=== PATIENT | female | born 1930 | race Two or more races ===

== ENCOUNTER 2019-06-28 13:30 | Inpatient (IN) | payer OTHER, MEDICARE ==
--- NOTE | 2019-06-28 15:18 | PDOC ---
History of Present Illness - General Chief Complaint: Urinary Problem Stated Complaint: UTI, BACK PAIN Time Seen by Provider: 06/28/19 14:19 History Source: Patient, Care Provider (Home health aide at bedside.), Primary Care Provider Exam Limitations: Dementia - History of Present Illness Initial Comments: HPI: 89 y/o female presenting to [facility] ER complaining of several days of right lower back pain and urinary urgency. Pt lives at [facility] assisted living with health aide. Interview limited as pt has a h/o dementia and cannot recall why she is in the ED. Aide reports she is having trouble making to the bathroom before voiding, which is unusual for the pt. Further reports the pt's urine has been more cloudy recently. Medical Hx: Medical Hx: (Obtained from PCP) - Dementia - Rectal Prolapse s/o corrective surgery - Cholelithiasis - B12 Deficiency - Osteoporosis - Varicose Veins - Incontinence - passive fecal - GERD - HLD - HTN w/ HfpEF - Collagenous Colitis - Abdominal hernia - Cardiac murmur (unspecified) - Slow transit constipation - Iron deficiency anemia Past Surgical Hx: - Tonsillectomy / Adenoidectomy - Hernia repair- Inguinal (x2) - Hysterectomy - total abd hyst w/ bladder sling - Appendectomy - Stomach resection for severe ulcer disease - Rectal prolapse repair - ORIF Left Femoral Neck Review of Systems: In addition to that documented in the HPI above, the additional ROS was obtained : Constitutional- Denies fevers or chills Head- Denies vision changes ENMT- Denies sore throat CV- Denies chest pain Resp- Denies SOB GI- Denies vomiting or diarrhea - Denies painful urination or hematuria MSK- Denies recent trauma Skin- Denies new rashes Neuro- Denies new numbness or tingling or weakness Endocrine- Denies polyuria Heme- Denies bleeding or bruising Physical Examination: Constitutional- Elderly adult female in no acute distress or obvious discomfort. Found semi-fowlers on hospital bed. Answered all questions appropriately and completely. Head- Normocephalic. No obvious external signs of trauma. Cardiovascular / Chest- Regular rate and regular rhythm. Systolic murmur. No murmur, rubs, clicks, or gallops. Peripheral pulses- radial pulses full. Respiratory- Breathing unlabored. Equal chest rise and fall. Clear to auscultation bilaterally. No stridor, no wheezing, no rhonchi. Gastrointestinal- abdomen is soft, non-tender, non-distended. Large ventral hernia that easily reduces. Neuro- Alert and oriented to person and place but cannot recall year or reason for presentation. Moving all four extremities spontaneously. MSK- Diffuse tenderness to right lower back versus posterior pelvis without overlying ecchymosis. Skin- Warm, dry, and intact. - No R or L CVA tenderness. Psych- Affect- appropriate. Mood- normal. Speech was non-labored, non- pressured. MDM: *Reviewed vital signs, nursing notes, and prior visit documentation (if available). 89 y/o female presenting with right lower back versus posterior pelvic pain and urinary incontinence. Afebrile. Vitals unremarkable for hypotension or tachycardia. Physical exam as described above. UA concerning for acute cystitis. Ordered Ceftriaxone for abx. Plain film of hip and pelvis revealed large stool burden. Ordered enema and Miralax. Will obtain CTAP given limited HPI. 28 Jun 2019 15:08 PM Telephone conversation w/ pts PCP. Faxed copy of last clinic encounter. 28 Jun 2019 17:57 PM Microblog sent to [facility] service for admission. Awaiting call back. CTAP revealed likely SBO. Oncoming ED Attending will page surgery and follow up on pending admission. Prosper Gutierrez M.D., PGY2 Emergency Medicine Resident Past History - Past Medical History Allergies/Adverse Reactions: Allergies Allergy/AdvReac Type Severity Reaction Status Date / Time No Known Allergies Allergy Verified 06/28/19 14:37 Home Medications: Ambulatory Orders Alendronate Sodium [Fosamax] 1 tab PO WEEKLY 06/28/19 Amlodipine Besylate 2.5 mg PO DAILY 06/28/19 Aspirin [Aspirin EC] 81 mg PO DAILY 06/28/19 Atorvastatin Ca [Lipitor] 20 mg PO DAILY 06/28/19 Cholecalciferol (Vitamin D3) [D-2000] 2,000 unit PO DAILY 06/28/19 Cyanocobalamin (Vitamin B-12) [B-12] 2,500 mcg SL DAILY 06/28/19 Famotidine [Pepcid] 20 mg PO DAILY 06/28/19 Iron,Carbonyl [Carbonyl Iron] 65 mg PO Q48H 06/28/19 Topiramate [Topamax] 25 mg PO BID 06/28/19 COPD: No Dementia: Yes GI Disorders: Yes (GERD) HTN: Yes Hypercholesterolemia: Yes Other medical history: UMBILACAL HERNIA, HEADACHES - Surgical History GI Surgery: Yes (RECTAL PROLAPSE) - Psycho Social/Smoking Cessation Hx Smoking History: Never smoked Hx Alcohol Use: No Drug/Substance Use Hx: No *Physical Exam - Vital Signs Last Vital Signs Temp Pulse Resp BP Pulse Ox 98.7 F 68 16 140/73 98 06/28/19 14:12 06/28/19 14:12 06/28/19 14:12 06/28/19 14:12 06/28/19 14:12 ED Treatment Course - LABORATORY CBC & Chemistry Diagram: 06/29/19 07:30 06/30/19 06:00 - ADDITIONAL ORDERS Additional order review: Laboratory Results 06/28/19 14:50 Urine Color Yellow Urine Appearance Turbid Urine pH 7.5 Urine Protein Trace Urine Glucose (UA) Negative Urine Ketones Negative Urine Blood 1+ H Urine Nitrite Positive H Urine Bilirubin Negative Urine Urobilinogen 0.2 Ur Leukocyte Esterase 3+ Urine RBC 10-20 Urine WBC >100 Urine Bacteria Many - RADIOLOGY Radiology Studies Ordered: Category Date Time Status CHEST - PA [RAD] Stat Radiology 06/28/19 14:44 Ordered HIP & PELVIS-RIGHT [RAD] Stat Radiology 06/28/19 14:43 Ordered Discharge - Discharge Information Problems reviewed: Yes Clinical Impression/Diagnosis: Cystitis, Left lower quadrant abdominal pain Lower back pain Qualifiers: Chronicity: acute Back pain laterality: right Sciatica presence: without sciatica Qualified Code(s): M54.5 - Low back pain Constipation Qualifiers: Constipation type: unspecified constipation type Qualified Code(s): K59.00 - Constipation, unspecified Condition: Stable - Admission Yes - Follow up/Referral - Patient Discharge Instructions - Post Discharge Activity
[2019-06-28 15:25] LABS: BASO % 0.4 % (0-2.0); EOS % 0.9 % (0-4.5); HEMATOCRIT 41.1 % (32.4-45.2); HEMOGLOBIN 13.5 GM/dl (10.7-15.3); LYMPH % 22.9 % (8-40); MCH 30.1 pg (25.7-33.7); MEAN CELL VOLUME 91.4 fl (80-96); MEAN PLT VOLUME 7.8 fl (7.5-11.1); NEUT % 70.8 % (42.8-82.8); PLATELET COUNT 325 K/MM3 (134-434); RBC 4.49 M/mm3 (3.60-5.2); RDW 13.6 % (11.6-15.6); WHITE BLOOD COUNT 8.7 K/mm3 (4.0-10.8)
[2019-06-28 15:32] LABS: ALBUMIN 3.5 g/dl (3.4-5.0); BILIRUBIN,TOTAL 1.4 mg/dl (0.2-1); CALCIUM 8.9 mg/dl (8.5-10); CREATININE 0.6 mg/dl (0.55-1.3); PHOSPHOROUS 3.3 mg/dl (2.5-4.9); POTASSIUM 3.7 mmol/L (3.5-5.1); TOT PROT 7.3 g/dl (6.4-8.2)
[2019-06-28] MEDS ORDERED: CEFTRIAXONE 1,000 MG in DEXTROSE 5%-WATER - 50 ML IVPB ONE (16:07)
[2019-06-28] MEDS ORDERED: POLYETHYLENE GLYCOL 3350 119 GM BTL PO ONE (16:08)
[2019-06-28] MEDS ORDERED: SODIUM PHOSPHATE/NA BIPHOS 133 ML ENEMA PR ONE (16:08)
[2019-06-28] MEDS ORDERED: cefTRIAXone SODIUM 1 GM VIAL ONE (16:21)
--- NOTE | 2019-06-28 16:54 | PDOC ---
Attending Attestation - Resident Resident Name: GutierrezProsper - ED Attending Attestation I have performed the following: I have examined & evaluated the patient, The case was reviewed & discussed with the resident, I agree w/resident's findings & plan, Exceptions are as noted - HPI HPI: 06/28/19 16:51 89 yo F here with c/o increased incontinence, urinary frequency and cloudy urine noted by aid. pt has dementia. history provided by her home health aid. pt has been eating ok, no fevers. no n/v no c/o abd pain. normally stools only every third day. c/o low back pain. flank pain. no falls, no other complaints. no cp no sob. daughter Luz Marina [place] [phone] - Physicial Exam PE: 06/28/19 16:52 awake alert lungs clear bilat heart systolic murmur, rrr. abd soft mild llq ttp. cva ttp. hip nt from, ext wwp no edema. no calf tenderness. nuero alert oriented x `1 - Medical Decision Making 06/28/19 16:53 89 yo F with c/o flank pain, urinary sxs. differential diverticulitis constipation. uti pyelo. plan ct a/p xray pelvis eval for hip path, ua cultrues, labs. pt with large UTI. large stool noted on xray pelvis. due to llq pain. will obtain ct a/p will admit for infection given ceftriaxone 06/28/19 19:28 ct a/p with sbo, surgical scar. will consult surgery. microblog for admission awaiting call back. was given ceftriaxone for her uti.l Heart Score/ECG Review #1 General ECG Interpretation: Sinus Rhythm, Normal Rate, Normal Intervals, No acute ischemic changes Compared to previous ECG there are: Other (left axis. rate 87 bpm.)
--- NOTE | 2019-06-28 20:46 | HP ---
Admitting History and Physical - Primary Care Physician PCP: - Admission Chief Complaint: Urinary problem, Back pain History of Present Illness: 89 year old female arrived to [facility] ER complaining of several days of right lower back pain and urinary urgency. Patient lives at [facility] assisted living with health aide. Interview limited due to h/o dementia, patient can not recall why she is in the ED. According to ED notes, Aide reported she is having trouble making to the bathroom on time (urgency, frequency and urine appears cloudy). 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 Cardiovascular: Yes: CHF, HTN, Hyperlipdemia, Murmur Gastrointestinal: Yes: Constipation, GERD, Other (Collagenous Colitis, Abdominal hernia) Hepatobiliary: Yes: Cholelithiasis Heme/Onc: Yes: Anemia, B12 Deficiency - Past Surgical History Past Surgical History: Yes: Appendectomy, Hernia Repair, Joint Replacement Additional Past Surgical History: PSX h/o - Tonsillectomy / Adenoidectomy - Hernia repair- Inguinal (x2) - Hysterectomy - total abd hyst w/ bladder sling - Appendectomy - Stomach resection for severe ulcer disease - Rectal prolapse repair - ORIF Left Femoral Neck - Smoking History Smoking history: Never smoked Have you smoked in the past 12 months: No - Alcohol/Substance Use Hx Alcohol Use: No History of Substance Use: reports: None - Social History Usual Living Arrangement: Yes: Assisted Living ADL: Support Services History of Recent Travel: No Home Medications - Allergies Allergies/Adverse Reactions: Allergies Allergy/AdvReac Type Severity Reaction Status Date / Time No Known Allergies Allergy Verified 06/28/19 14:37 - Home Medications Home Medications: Ambulatory Orders Alendronate Sodium [Fosamax] 1 tab PO WEEKLY 06/28/19 Amlodipine Besylate 2.5 mg PO DAILY 06/28/19 Aspirin [Aspirin EC] 81 mg PO DAILY 06/28/19 Atorvastatin Ca [Lipitor] 20 mg PO DAILY 06/28/19 Cholecalciferol (Vitamin D3) [D-2000] 2,000 unit PO DAILY 06/28/19 Cyanocobalamin (Vitamin B-12) [B-12] 2,500 mcg SL DAILY 06/28/19 Famotidine [Pepcid] 20 mg PO DAILY 06/28/19 Iron,Carbonyl [Carbonyl Iron] 65 mg PO Q48H 06/28/19 Topiramate [Topamax] 25 mg PO BID 06/28/19 Family Medical History Family History: Unable to Obtain (advance dementia) Review of Systems Unable to obtain ROS, reason: dementia Physical Examination Vital Signs: Vital Signs Temperature 98.3 F 06/28/19 19:06 Pulse Rate 91 H 06/28/19 19:06 Respiratory Rate 18 06/28/19 19:06 Blood Pressure 163/114 H 06/28/19 19:06 O2 Sat by Pulse Oximetry (%) 100 06/28/19 19:06 Constitutional: Yes: No Distress, Calm Eyes: Yes: Conjunctiva Clear, EOM Intact HENT: Yes: Atraumatic, Normocephalic Neck: Yes: Supple, Trachea Midline Cardiovascular: Yes: Regular Rate and Rhythm Respiratory: Yes: Regular, CTA Bilaterally Gastrointestinal: Yes: Normal Bowel Sounds, Soft, Tenderness Musculoskeletal: Yes: WNL Edema: No Peripheral Pulses WNL: Yes Integumentary: Yes: WNL Neurological: Yes: Alert, Confusion Psychiatric: Yes: Alert Labs: CBC, BMP 06/28/19 15:00 06/28/19 15:00 Imaging - Results Chest X-ray: Report Reviewed (no acute pathology) X-ray: Report Reviewed (right hip/pelvis: no fx or subluxation) Cat Scan: Report Reviewed (CTAP reveals SBO) Problem List - Problems (1) Cystitis Code(s): N30.90 - CYSTITIS, UNSPECIFIED WITHOUT HEMATURIA (2) SBO (small bowel obstruction) Code(s): K56.609 - UNSP INTESTNL OBST, UNSP TO PARTIAL VERSUS COMPLETE OBST (3) HTN (hypertension) Code(s): I10 - ESSENTIAL (PRIMARY) HYPERTENSION (4) HLD (hyperlipidemia) Code(s): E78.5 - HYPERLIPIDEMIA, UNSPECIFIED (5) CHF (congestive heart failure) Code(s): I50.9 - HEART FAILURE, UNSPECIFIED (6) GERD (gastroesophageal reflux disease) Code(s): K21.9 - GASTRO-ESOPHAGEAL REFLUX DISEASE WITHOUT ESOPHAGITIS (7) Vitamin B deficiency, unspecified Code(s): E53.9 - VITAMIN B DEFICIENCY, UNSPECIFIED (8) Anemia Code(s): D64.9 - ANEMIA, UNSPECIFIED (9) Dementia Code(s): F03.90 - UNSPECIFIED DEMENTIA WITHOUT BEHAVIORAL DISTURBANCE Assessment/Plan 89 year old female arrived to [facility] ER complaining of several days of right lower back pain and urinary urgency. Patient lives at [facility] assisted living with health aide. Interview limited due to h/o dementia, patient can not recall why she is in the ED. According to ED notes, Aide reported she is having trouble making to the bathroom on time (urgency, frequency and urine appears cloudy). #SBO - Abd CT/pelvis: several dilated small bowel loops within left lower abdomen, suggestive of obstruction, moderate size umbilical hernia containing several large, small bowel loops, 3 cm left renal upper lobe cyst - in ED given : fleet enema, and miralax - NPO - continue with miralax BID - follow up GI in AM # UTI UA positive, given ceftriaxone in ED - follow up urine culture - will continue with ceftriaxone 1 g daily, and adjust based on sensitivity - Tylenol po q 6 hours PRN - follow up cbc, Cmp in AM # HTN w/ HfpEF # HLD EKG: Sinus Rhythm, Normal Rate, Normal Intervals, No acute ischemic changes CXR: no acute pathology -Amlodipine Besylate 2.5 mg PO DAILY -Atorvastatin Ca 20 mg PO DAILY -Monitor I&O -fluid restriction -trend lytes # GERD - Famotidine 20 mg PO DAILY #Anemia # B12 deficiency -Cyanocobalamin 2,500 mcg SL DAILY -Iron,Carbonyl 65 mg PO Q48H # Dementia - safety/fall precaution Visit type - Emergency Visit Emergency Visit: Yes ED Registration Date: 06/28/19 Care time: The patient presented to the Emergency Department on the above date and was hospitalized for further evaluation of their emergent condition. - New Patient This patient is new to me today: Yes Date on this admission: 06/29/19 - Critical Care Critical Care patient: No
[2019-06-28] MEDS ORDERED: morphine SULFATE 4 MG/ML VIAL ONE (21:09)
[2019-06-28] MEDS ORDERED: ACETAMINOPHEN 1000 MG/100 ML VIAL (NON FORMULARY) IVPB ONE (22:58)
[2019-06-28] MEDS ORDERED: ACETAMINOPHEN INJECTION 100 ML IVPB ONE (22:58)
[2019-06-29 00:41] VITALS: BMI 25.3
[2019-06-29] MEDS ORDERED: PATIENT'S OWN MEDICATION (NON-FORMULARY) (Alendronate Sodium [Fosamax] 1 TAB) PO SCH (00:45)
[2019-06-29] MEDS: IRON CARBONYL 65 MG PO SCH (03:25)
--- NOTE | 2019-06-29 07:44 | CONSULT ---
Consult Consult Specialty:: General Surgery Reason for Consultation:: sbo patten on ct scan? no obstruvtive symproms - History of Present Illness Chief Complaint: back pain and urinary problem History of Present Illness: 89 yo female PMH HTN, Dementia, GERD, CHF, HLD, chronic constipation s/p abdominal surgery presented to ED complaining of several days of right lower back pain and urinary urgency. Patient lives at [facility] assisted living with health aide. Interview limited due to h/o dementia, patient can not recall why she is in the ED. According to ED notes, Aide reported she is having trouble making to the bathroom on time (urgency, frequency and urine appears cloudy). CT scan of abdoman mentioned dialted loop and an anastomosis so surgery was called to assess despite no complaint of gastrointestinal obstructiev symptoms. She denies nausea and vomiting. She reports bouts of constipation. 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 Cardio/Vascular: Yes: CHF, HTN, Hyperlipdemia, Murmur Gastrointestinal: Yes: Constipation, GERD, Other (Collagenous Colitis, Abdominal hernia) Hepatobiliary: Yes: Cholelithiasis ...LMP Comment: 89 YEAR OLD ...: No - Past Surgical History Past Surgical History: Yes: Appendectomy, Hernia Repair, Joint Replacement - Alcohol/Substance Use Hx Alcohol Use: No History of Substance Use: reports: None - Smoking History Smoking history: Never smoked Have you smoked in the past 12 months: No - Social History ADL: Support Services History of Recent Travel: No Home Medications - Allergies Allergies/Adverse Reactions: Allergies Allergy/AdvReac Type Severity Reaction Status Date / Time No Known Allergies Allergy Verified 06/28/19 14:37 - Home Medications Home Medications: Ambulatory Orders Alendronate Sodium [Fosamax] 1 tab PO WEEKLY 06/28/19 Amlodipine Besylate 2.5 mg PO DAILY 06/28/19 Aspirin [Aspirin EC] 81 mg PO DAILY 06/28/19 Atorvastatin Ca [Lipitor] 20 mg PO DAILY 06/28/19 Cholecalciferol (Vitamin D3) [D-2000] 2,000 unit PO DAILY 06/28/19 Cyanocobalamin (Vitamin B-12) [B-12] 2,500 mcg SL DAILY 06/28/19 Famotidine [Pepcid] 20 mg PO DAILY 06/28/19 Iron,Carbonyl [Carbonyl Iron] 65 mg PO Q48H 06/28/19 Topiramate [Topamax] 25 mg PO BID 06/28/19 Review of Systems - Review of Systems Constitutional: denies: Chills, Fever Eyes: denies: Blind Spots, Other HENT: denies: Difficult Swallowing, Throat Pain, Ringing in Ears Neck: denies: Decreased ROM, Pain on Movement, Tenderness Cardiovascular: denies: Chest Pain, Palpitations Respiratory: denies: Cough, SOB Gastrointestinal: reports: Constipation, Indigestion. denies: Abdominal Pain Genitourinary: denies: Burning, Dysuria Breasts: reports: No Symptoms Reported. denies: Pain Musculoskeletal: denies: Back Pain, Muscle Pain, Muscle Cramps Neurological: denies: Seizure, Syncope Endocrine: denies: Unexplained Weight Gain, Unexplained Weight Loss Hematology/Lymphatic: denies: Easily Bruised, Excessive Bleeding Psychiatric: denies: Anxiety, Depression Physical Exam Vital Signs: Vital Signs Temperature 98.3 F 06/29/19 06:00 Pulse Rate 71 06/29/19 06:00 Respiratory Rate 18 06/29/19 06:00 Blood Pressure 127/58 L 06/29/19 06:00 O2 Sat by Pulse Oximetry (%) 92 L 06/29/19 06:00 Constitutional: Yes: Well Nourished, No Distress, Calm Eyes: Yes: Conjunctiva Clear, EOM Intact HENT: Yes: Atraumatic, Normocephalic Neck: Yes: Supple, Trachea Midline Cardiovascular: Yes: Regular Rate and Rhythm, S1, S2 Respiratory: Yes: Regular, CTA Bilaterally Gastrointestinal: Yes: Normal Bowel Sounds, Soft. No: Distention, Tenderness ...Rectal Exam: No: Erythema, Mass Renal/: No: CVA Tenderness - Left, CVA Tenderness - Right, Hematuria Breast(s): No: Dimpling, Nipple Inversion Musculoskeletal: No: Muscle Pain Extremities: No: Amputation, Cool, Cyanosis Edema: No Peripheral Pulses WNL: Yes Integumentary: Yes: Incision (healed midline with large incisonal hernia). No: Jaundice, Laceration Neurological: Yes: Alert, Confusion. No: Oriented Psychiatric: Yes: Alert. No: Oriented Imaging - Results Cat Scan: Report Reviewed, Image Reviewed Problem List - Problems (1) SBO (small bowel obstruction) Assessment/Plan: 89yo female with SBO pattern on CT scan, no clinical signs of SBO, contipation noted. No indication for surgical intervention clears advance diet as tolerated Medical managemnt of UTI Dulcolax recall as needed Thank you for the opportunity to participate in the care of this patient. Problems reviewed: Yes Code(s): K56.609 - UNSP INTESTNL OBST, UNSP TO PARTIAL VERSUS COMPLETE OBST (2) CHF (congestive heart failure) Problems reviewed: Yes Code(s): I50.9 - HEART FAILURE, UNSPECIFIED (3) Constipation Problems reviewed: Yes Code(s): K59.00 - CONSTIPATION, UNSPECIFIED Qualifiers: Constipation type: unspecified constipation type Qualified Code(s): K59.00 - Constipation, unspecified (4) Dementia Problems reviewed: Yes Code(s): F03.90 - UNSPECIFIED DEMENTIA WITHOUT BEHAVIORAL DISTURBANCE (5) GERD (gastroesophageal reflux disease) Problems reviewed: Yes Code(s): K21.9 - GASTRO-ESOPHAGEAL REFLUX DISEASE WITHOUT ESOPHAGITIS (6) HLD (hyperlipidemia) Problems reviewed: Yes Code(s): E78.5 - HYPERLIPIDEMIA, UNSPECIFIED (7) HTN (hypertension) Problems reviewed: Yes Code(s): I10 - ESSENTIAL (PRIMARY) HYPERTENSION
[2019-06-29 08:30] LABS: HEMATOCRIT 38.9 % (32.4-45.2); HEMOGLOBIN 12.7 GM/dl (10.7-15.3); MCH 29.8 pg (25.7-33.7); MCHC 32.6 g/dl (32.0-36.0); MEAN CELL VOLUME 91.2 fl (80-96); MEAN PLT VOLUME 8.4 fl (7.5-11.1); PLATELET COUNT 297 K/MM3 (134-434); RBC 4.27 M/mm3 (3.60-5.2); RDW 13.8 % (11.6-15.6); WHITE BLOOD COUNT 6.5 K/mm3 (4.0-10.8)
[2019-06-29 08:49] LABS: ALBUMIN 3.2 g/dl (3.4-5.0); BILIRUBIN,TOTAL 1.4 mg/dl (0.2-1); CALCIUM 8.9 mg/dl (8.5-10); CREATININE 0.6 mg/dl (0.55-1.3); POTASSIUM 3.2 mmol/L (3.5-5.1); TOT PROT 6.8 g/dl (6.4-8.2)
[2019-06-29] MEDS ORDERED: BISACODYL 5 MG TABLET.DR (FP) PO PRN (09:20)
[2019-06-29] MEDS ORDERED: PT OWN MED DRAWER 7, Y5N ONE (09:27)
[2019-06-29] MEDS: amLODIPine BESYLATE 2.5 MG TABLET (FP) PO SCH (09:40)
[2019-06-29] MEDS: FAMOTIDINE 20 MG TABLET PO SCH (09:45)
[2019-06-29] MEDS ORDERED: CYANOCOBALAMIN 2500 MCG SL SCH (10:00)
[2019-06-29] MEDS: CEFTRIAXONE 1 GM in DEXTROSE 5%-WATER - 50 ML IVPB SCH (10:00)
[2019-06-29] MEDS ORDERED: [UNRECOGNIZED DRUG - OTHER] SL SCH (10:00)
[2019-06-29] MEDS: TOPIRAMATE 25 MG TABLET (FP) PO SCH ×2 (10:05→21:14)
[2019-06-29] MEDS: CHOLECALCIFEROL (VIT D3) 1,000 UNIT (25 MCG) TABLET PO SCH (10:05)
--- NOTE | 2019-06-29 10:29 | PN ---
Physical Exam: SUBJECTIVE: Patient seen and examined, pt remains confused, denies abdominal pain. N/V. OBJECTIVE: Vital Signs Period Temp Pulse Resp BP Sys/Blevins Pulse Ox Last 24 Hr 98.3 F-98.7 F 68-91 16-18 127-163/58-114 92-100 GENERAL: The patient is awake, alert, confused, not in acute distress. HEAD: Normal with no signs of trauma. EYES: PERRL, extraocular movements intact, sclera anicteric, conjunctiva clear. No ptosis. ENT: Ears normal, nares patent, oropharynx clear without exudates, moist mucous membranes. NECK: Trachea midline, full range of motion, supple. LUNGS: Breath sounds equal, clear to auscultation bilaterally, no wheezes, no crackles, no accessory muscle use. HEART: Regular rate and rhythm, S1, S2 without murmur, rub or gallop. ABDOMEN: Soft, nontender, nondistended, normoactive bowel sounds, no guarding, no rebound, no hepatosplenomegaly, no masses.+ umbilical hernia EXTREMITIES: 2+ pulses, warm, well-perfused, no edema. NEUROLOGICAL: Cranial nerves II through XII grossly intact. Normal speech, gait not observed. PSYCH: Normal mood, normal affect. SKIN: Warm, dry, normal turgor, no rashes or lesions noted Laboratory Results - last 24 hr 06/28/19 06/28/19 06/28/19 14:50 15:00 15:00 WBC 8.7 RBC 4.49 Hgb 13.5 Hct 41.1 MCV 91.4 MCH 30.1 MCHC 33.0 RDW 13.6 Plt Count 325 MPV 7.8 Absolute Neuts (auto) 6.2 Neutrophils % 70.8 Lymphocytes % 22.9 Monocytes % 5.0 Eosinophils % 0.9 Basophils % 0.4 Sodium 138 Potassium 3.7 Chloride 109 H Carbon Dioxide 23 Anion Gap 6 L BUN 15.0 Creatinine 0.6 Est GFR (CKD-EPI)AfAm 93.66 Est GFR (CKD-EPI)NonAf 80.81 Random Glucose 109 H Calcium 8.9 Phosphorus 3.3 Magnesium 2.0 Total Bilirubin 1.4 H AST 31 ALT 38 Alkaline Phosphatase 147 H Total Protein 7.3 Albumin 3.5 Urine Color Yellow Urine Appearance Turbid Urine pH 7.5 Urine Protein Trace Urine Glucose (UA) Negative Urine Ketones Negative Urine Blood 1+ H Urine Nitrite Positive H Urine Bilirubin Negative Urine Urobilinogen 0.2 Ur Leukocyte Esterase 3+ Urine RBC 10-20 Urine WBC >100 Urine Bacteria Many 06/29/19 06/29/19 07:30 07:30 WBC 6.5 RBC 4.27 Hgb 12.7 Hct 38.9 MCV 91.2 MCH 29.8 MCHC 32.6 RDW 13.8 Plt Count 297 MPV 8.4 Absolute Neuts (auto) Neutrophils % Lymphocytes % Monocytes % Eosinophils % Basophils % Sodium 141 Potassium 3.2 L Chloride 106 Carbon Dioxide 23 Anion Gap 12 BUN 13.0 Creatinine 0.6 Est GFR (CKD-EPI)AfAm 93.66 Est GFR (CKD-EPI)NonAf 80.81 Random Glucose 119 H Calcium 8.9 Phosphorus Magnesium Total Bilirubin 1.4 H AST 23 ALT 31 Alkaline Phosphatase 129 H D Total Protein 6.8 Albumin 3.2 L Urine Color Urine Appearance Urine pH Urine Protein Urine Glucose (UA) Urine Ketones Urine Blood Urine Nitrite Urine Bilirubin Urine Urobilinogen Ur Leukocyte Esterase Urine RBC Urine WBC Urine Bacteria Active Medications Generic Name Dose Route Start Last Admin Trade Name Freq PRN Reason Stop Dose Admin Acetaminophen 650 mg 06/29/19 00:42 Tylenol - PO Q6H PRN PAIN LEVEL 1-5 Amlodipine Besylate 2.5 mg 06/29/19 10:00 Norvasc - PO DAILY [facility] Atorvastatin Calcium 20 mg 06/29/19 22:00 Lipitor - PO HS [facility] Bisacodyl 5 mg 06/29/19 09:20 Dulcolax - PO DAILY PRN CONSTIPATION Cholecalciferol 2,000 unit 06/29/19 10:00 Vitamin D3 - PO DAILY [facility] Cyanocobalamin 2,500 mcg 06/30/19 10:00 Vitamin B12 - PO DAILY [facility] Famotidine 20 mg 06/29/19 10:00 Pepcid - PO DAILY [facility] Heparin Sodium (Porcine) 5,000 unit 06/29/19 10:00 Heparin - SQ BID [facility] Ceftriaxone Sodium 1 gm/ 50 mls @ 100 mls/hr 06/29/19 10:00 Dextrose IVPB 07/05/19 23:59 DAILY [facility] Non-Formulary Medication 65 mg 06/29/19 00:45 06/29/19 03:25 Iron,Carbonyl [Carbonyl Iron] PO Not Given Q48H [facility] Topiramate 25 mg 06/29/19 10:00 Topamax - PO BID KM Chest X-ray: No acute pathology Hip X-ray: Report Reviewed (right hip/pelvis: no fx or subluxation) Cat Scan: Suggestive of obstruction, GB stones,umbilical hernia ASSESSMENT/PLAN: 89 y/o female with multiple medical problems, who was sent from the [facility] for the evaluation of several days of right lower back pain and urinary urgency. PMD Dr. gaona #SBO - Abd CT/pelvis: several dilated small bowel loops within left lower abdomen, suggestive of obstruction, moderate size umbilical hernia containing several large, small bowel loops, 3 cm left renal upper lobe cyst -sx following, rec diet as tolerated - will cont on laxatives # UTI -UA positive - will cont on Ceftriaxone - afebrile with no leukocytosis - urine culture pending # Hx of HTN w/ HfpEF - no evidence of fluid overload -EKG: Sinus Rhythm, Normal Rate, Normal Intervals, No acute ischemic changes CXR: no acute pathology -Amlodipine Besylate 2.5 mg PO DAILY # HDL - will cont on Atorvastatin Ca 20 mg PO DAILY # GERD - Famotidine 20 mg PO DAILY #Anemia, B12 deficiency -Cyanocobalamin 2,500 mcg SL DAILY -Iron,Carbonyl 65 mg PO Q48H # Dementia - safety/fall precaution # Hypokalemia - K 3.2 replaced -Mg 2 # Abnormal T. bili and ALK, ? chronic - asymptomatic - AST/ ALT - wnl - CT abdomen/ pelvis: No obvious biliary pathology or acute cholecystitis - will check direct bili # VTE: Heparin SQ # F/E/N: Heart Healthy Diet - Replace electrolytes as needed Visit type - Emergency Visit Emergency Visit: Yes ED Registration Date: 06/28/19 Care time: The patient presented to the Emergency Department on the above date and was hospitalized for further evaluation of their emergent condition. - New Patient This patient is new to me today: Yes Date on this admission: 06/29/19 - Critical Care Critical Care patient: No
[2019-06-29] MEDS ORDERED: POTASSIUM CHLORIDE TABS 20 MEQ TABLET.ER (FP) PO ONE (10:42)
[2019-06-29] MEDS: HEPARIN NA (PORCINE) 5,000 UNITS/ML 1ML VIAL SQ SCH ×2 (12:49→21:15)
[2019-06-29] MEDS: ATORVASTATIN CA 20 MG TABLET (FP) PO SCH (21:14)
[2019-06-30] MEDS: ACETAMINOPHEN 325 MG TABLET (FP) PO PRN (07:13)
[2019-06-30] MEDS: TOPIRAMATE 25 MG TABLET (FP) PO SCH ×2 (09:18→21:56)
[2019-06-30] MEDS: amLODIPine BESYLATE 2.5 MG TABLET (FP) PO SCH (09:18)
[2019-06-30] MEDS: FAMOTIDINE 20 MG TABLET PO SCH (09:18)
[2019-06-30] MEDS: HEPARIN NA (PORCINE) 5,000 UNITS/ML 1ML VIAL SQ SCH ×2 (09:19→21:57)
[2019-06-30] MEDS: CYANOCOBALAMIN 1,000 MCG TABLET (FP) PO SCH (09:19)
[2019-06-30] MEDS: CEFTRIAXONE 1 GM in DEXTROSE 5%-WATER - 50 ML IVPB SCH (09:19)
[2019-06-30] MEDS: CHOLECALCIFEROL (VIT D3) 1,000 UNIT (25 MCG) TABLET PO SCH (09:19)
[2019-06-30 09:24] LABS: BILIRUBIN,TOTAL 1.2 mg/dl (0.2-1); CALCIUM 8.8 mg/dl (8.5-10); CREATININE 0.6 mg/dl (0.55-1.3); POTASSIUM 3.1 mmol/L (3.5-5.1); TOT PROT 6.5 g/dl (6.4-8.2)
[2019-06-30 09:43] LABS: MAGNESIUM 2.1 mg/dL (1.8-2.4)
--- NOTE | 2019-06-30 11:01 | PN ---
Physical Exam: SUBJECTIVE: Patient seen and examined, pt confused at baseline, does not recall why she came to ER NAD, pain noted OBJECTIVE: Vital Signs Period Temp Pulse Resp BP Sys/Blevins Pulse Ox Last 24 Hr 98.2 F-98.6 F 69-77 16-19 130-154/62-69 93-100 GENERAL: The patient is awake, alert, and fully oriented, in no acute distress. HEAD: Normal with no signs of trauma. EYES: PERRL, extraocular movements intact, sclera anicteric, conjunctiva clear. No ptosis. ENT: Ears normal, nares patent, oropharynx clear without exudates, moist mucous membranes. NECK: Trachea midline, full range of motion, supple. LUNGS: Breath sounds equal, clear to auscultation bilaterally, no wheezes, no crackles, no accessory muscle use. HEART: Regular rate and rhythm, S1, S2 without murmur, rub or gallop. ABDOMEN: Soft, nontender, nondistended, normoactive bowel sounds, no guarding, no rebound, no hepatosplenomegaly, no masses. EXTREMITIES: 2+ pulses, warm, well-perfused, no edema. NEUROLOGICAL: Cranial nerves II through XII grossly intact. Normal speech, gait not observed. PSYCH: Normal mood, normal affect. SKIN: Warm, dry, normal turgor, no rashes or lesions noted Laboratory Results - last 24 hr 06/29/19 06/30/19 07:30 06:00 Sodium 139 Potassium 3.1 L Chloride 104 Carbon Dioxide 23 Anion Gap 12 BUN 13.0 Creatinine 0.6 Est GFR (CKD-EPI)AfAm 93.66 Est GFR (CKD-EPI)NonAf 80.81 Random Glucose 112 H Calcium 8.8 Magnesium 2.1 Total Bilirubin 1.2 H Direct Bilirubin 0.2 AST 21 ALT 26 Alkaline Phosphatase 122 H Total Protein 6.5 Albumin 3.0 L Active Medications Generic Name Dose Route Start Last Admin Trade Name Freq PRN Reason Stop Dose Admin Acetaminophen 650 mg 06/29/19 00:42 06/30/19 07:13 Tylenol - PO 650 mg Q6H PRN Administration PAIN LEVEL 1-5 Amlodipine Besylate 2.5 mg 06/29/19 10:00 06/30/19 09:18 Norvasc - PO 2.5 mg DAILY KM Administration Atorvastatin Calcium 20 mg 06/29/19 22:00 06/29/19 21:14 Lipitor - PO 20 mg HS KM Administration Bisacodyl 5 mg 06/29/19 09:20 Dulcolax - PO DAILY PRN CONSTIPATION Cholecalciferol 2,000 unit 06/29/19 10:00 06/30/19 09:19 Vitamin D3 - PO 2,000 unit DAILY KM Administration Cyanocobalamin 2,500 mcg 06/30/19 10:00 06/30/19 09:19 Vitamin B12 - PO 2,500 mcg DAILY KM Administration Famotidine 20 mg 06/29/19 10:00 06/30/19 09:18 Pepcid - PO 20 mg DAILY KM Administration Heparin Sodium (Porcine) 5,000 unit 06/29/19 10:00 06/30/19 09:19 Heparin - SQ 5,000 unit BID KM Administration Ceftriaxone Sodium 1 gm/ 50 mls @ 100 mls/hr 06/29/19 10:00 06/30/19 09:19 Dextrose IVPB 07/05/19 23:59 100 mls/hr DAILY KM Administration Non-Formulary Medication 65 mg 06/29/19 00:45 06/29/19 03:25 Iron,Carbonyl [Carbonyl Iron] PO Not Given Q48H KM Topiramate 25 mg 06/29/19 10:00 06/30/19 09:18 Topamax - PO 25 mg BID KM Administration ASSESSMENT/PLAN: 89 y/o female with multiple medical problems, who was sent from the [facility] for the evaluation of several days of right lower back pain and urinary urgency. A/P: #SBO - Abd CT/pelvis: several dilated small bowel loops within left lower abdomen, suggestive of obstruction, moderate size umbilical hernia containing several large, small bowel loops, 3 cm left renal upper lobe cyst -sx following, rec diet as tolerated -no surgical intervention, no SBO - will cont on laxatives #Hypokalemia -40 meq KCL x 2 doses ordered # UTI -UA positive - c/w Ceftriaxone - afebrile with no leukocytosis - urine culture in process # Hx of HTN w/ HfpEF - no evidence of fluid overload -EKG: Sinus Rhythm, Normal Rate, Normal Intervals, No acute ischemic changes CXR: no acute pathology -Amlodipine Besylate 2.5 mg PO DAILY # HDL - c/wAtorvastatin Ca 20 mg PO DAILY # GERD - Famotidine 20 mg PO DAILY #Anemia, B12 deficiency -Cyanocobalamin 2,500 mcg SL DAILY -Iron,Carbonyl 65 mg PO Q48H # Dementia - safety/fall precaution # Abnormal T. bili and ALK, ? chronic - asymptomatic - AST/ ALT - wnl - CT abdomen/ pelvis: No obvious biliary pathology or acute cholecystitis - T.Bili 1.2 improving # VTE: Heparin SQ # F/E/N: Heart Healthy Diet - Replace electrolytes as needed Visit type - Emergency Visit Emergency Visit: Yes ED Registration Date: 06/28/19 Care time: The patient presented to the Emergency Department on the above date and was hospitalized for further evaluation of their emergent condition. - New Patient This patient is new to me today: Yes Date on this admission: 06/30/19 - Critical Care Critical Care patient: No
[2019-06-30] MEDS: ATORVASTATIN CA 20 MG TABLET (FP) PO SCH (21:56)
[2019-06-30] MEDS: POTASSIUM CHLORIDE TABS 20 MEQ TABLET.ER (FP) PO SCH (21:57)
[2019-07-01] MEDS ORDERED: CEFTRIAXONE 1 G/50 ML PREMIX 50 ML IVPB SCH (07:57)
[2019-07-01 08:05] LABS: BASO % 0.6 % (0-2.0); EOS % 3.2 % (0-4.5); HEMATOCRIT 42.5 % (32.4-45.2); HEMOGLOBIN 14.1 GM/dl (10.7-15.3); LYMPH % 37.5 % (8-40); MCH 30.1 pg (25.7-33.7); MCHC 33.2 g/dl (32.0-36.0); MONO % 7.4 % (3.8-10.2); NEUT % 51.3 % (42.8-82.8); PLATELET COUNT 308 K/MM3 (134-434); RBC 4.68 M/mm3 (3.60-5.2); RDW 13.6 % (11.6-15.6)
[2019-07-01 08:24] LABS: ALBUMIN 3.1 g/dl (3.4-5.0); BILIRUBIN,TOTAL 1.3 mg/dl (0.2-1); CALCIUM 9.2 mg/dl (8.5-10); CREATININE 0.7 mg/dl (0.55-1.3); MAGNESIUM 2.2 mg/dL (1.8-2.4); TOT PROT 6.7 g/dl (6.4-8.2)
[2019-07-01] MEDS: CHOLECALCIFEROL (VIT D3) 1,000 UNIT (25 MCG) TABLET PO SCH (10:26)
[2019-07-01] MEDS: CYANOCOBALAMIN 1,000 MCG TABLET (FP) PO SCH (10:26)
[2019-07-01] MEDS: amLODIPine BESYLATE 2.5 MG TABLET (FP) PO SCH (10:27)
[2019-07-01] MEDS: FAMOTIDINE 20 MG TABLET PO SCH (10:27)
[2019-07-01] MEDS: TOPIRAMATE 25 MG TABLET (FP) PO SCH ×2 (10:27→21:29)
[2019-07-01] MEDS: HEPARIN NA (PORCINE) 5,000 UNITS/ML 1ML VIAL SQ SCH ×2 (10:28→21:29)
[2019-07-01] MEDS: POTASSIUM CHLORIDE TABS 20 MEQ TABLET.ER (FP) PO SCH (10:28)
--- NOTE | 2019-07-01 11:03 | EKG ---
Test Reason : Blood Pressure : / mmHG Vent. Rate : 087 BPM Atrial Rate : 087 BPM P-R Int : 144 ms QRS Dur : 086 ms QT Int : 392 ms P-R-T Axes : 024 -05 012 degrees QTc Int : 471 ms NORMAL SINUS RHYTHM NONSPECIFIC ST ABNORMALITY ABNORMAL ECG NO PREVIOUS ECGS AVAILABLE Confirmed by LAZARO GREGG, JEAN ([id number]) on 07/01/2019 11:02:39 AM Referred By: DR REEVES Confirmed By:JEAN WILLIS MD
[2019-07-01] MEDS ORDERED: ERTAPENEM SODIUM 1 GM/50 ML PRE-DOCKED IVPB SCH (14:00)
[2019-07-01] MEDS ORDERED: ERTAPENEM SODIUM 1 GM VIAL ONE (14:13)
[2019-07-01] MEDS ORDERED: SODIUM CHLORIDE 50 ML IVPB ONE (14:14)
[2019-07-01] MEDS ORDERED: ERTAPENEM SODIUM 1 GM in SODIUM CHLORIDE 50 ML IVPB SCH (14:15)
[2019-07-01] MEDS: ACETAMINOPHEN 325 MG TABLET (FP) PO PRN (14:28)
[2019-07-01] MEDS: MEROPENEM 1 GM in DEXTROSE 5%-WATER 100 ML IVPB SCH ×3 (14:29→22:55)
[2019-07-01] MEDS ORDERED: DEXTROSE 5%-WATER 100 ML IVPB ONE ×2 (14:34→21:22)
[2019-07-01] MEDS ORDERED: MEROPENEM 1 GM VIAL (RESTRICTED TO ID) IVPB ONE ×2 (14:34→21:22)
[2019-07-01] MEDS ORDERED: BISACODYL 5 MG TABLET.DR (FP) PO STA (14:38)
--- NOTE | 2019-07-01 14:54 | PN ---
Physical Exam: SUBJECTIVE: Patient seen and examined oob to chair. present. Aide Symone present. OBJECTIVE: Vital Signs Period Temp Pulse Resp BP Sys/Blevins Pulse Ox Last 24 Hr 97.6 F-99.2 F 69-81 16-20 124-144/60-71 92-98 GENERAL: The patient is awake. Oriented only to first name, cannot recall her last name. LUNGS: Breath sounds equal, clear to auscultation bilaterally, no wheezes, no crackles, no accessory muscle use. HEART: Regular rate and rhythm, S1, S2 ABDOMEN: Soft, nontender, nondistended; umbilial hernia, reducible, not tender EXTREMITIES: 2+ pulses, warm, well-perfused, no edema. NEUROLOGICAL: Cranial nerves II through XII grossly intact. Normal speech Laboratory Results - last 24 hr 07/01/19 07/01/19 07:20 07:20 WBC 6.0 RBC 4.68 Hgb 14.1 Hct 42.5 MCV 91.0 MCH 30.1 MCHC 33.2 RDW 13.6 Plt Count 308 MPV 8.0 Absolute Neuts (auto) 3.1 Neutrophils % 51.3 Lymphocytes % 37.5 Monocytes % 7.4 Eosinophils % 3.2 Basophils % 0.6 Sodium 141 Potassium 4.0 Chloride 108 H Carbon Dioxide 22 Anion Gap 11 BUN 16.0 Creatinine 0.7 Est GFR (CKD-EPI)AfAm 89.03 Est GFR (CKD-EPI)NonAf 76.82 Random Glucose 119 H Calcium 9.2 Magnesium 2.2 Total Bilirubin 1.3 H AST 21 ALT 25 Alkaline Phosphatase 118 H Total Protein 6.7 Albumin 3.1 L Active Medications Generic Name Dose Route Start Last Admin Trade Name Frekatelyn PRN Reason Stop Dose Admin Acetaminophen 650 mg 06/29/19 00:42 06/30/19 07:13 Tylenol - PO 650 mg Q6H PRN Administration PAIN LEVEL 1-5 Amlodipine Besylate 2.5 mg 06/29/19 10:00 07/01/19 10:27 Norvasc - PO 2.5 mg DAILY KM Administration Atorvastatin Calcium 20 mg 06/29/19 22:00 06/30/19 21:56 Lipitor - PO 20 mg HS KM Administration Bisacodyl 5 mg 06/29/19 09:20 Dulcolax - PO DAILY PRN CONSTIPATION Cholecalciferol 2,000 unit 06/29/19 10:00 07/01/19 10:26 Vitamin D3 - PO 2,000 unit DAILY KM Administration Cyanocobalamin 2,500 mcg 06/30/19 10:00 07/01/19 10:26 Vitamin B12 - PO 2,500 mcg DAILY KM Administration Ertapenem 1 gm 07/01/19 14:00 Invanz (Pre-Docked) IVPB DAILY KM Famotidine 20 mg 06/29/19 10:00 07/01/19 10:27 Pepcid - PO 20 mg DAILY KM Administration Heparin Sodium (Porcine) 5,000 unit 06/29/19 10:00 07/01/19 10:28 Heparin - SQ 5,000 unit BID KM Administration Topiramate 25 mg 06/29/19 10:00 07/01/19 10:27 Topamax - PO 25 mg BID KM Administration ASSESSMENT/PLAN: 88 year-old female with a PMH significant for HTN, HLD, diastolic HF, GERD, constipation, fecal incontinence, collagenous colitis, iron-deficiency anemia, and dementia. Admitted for UTI and possible SBO. h/o multiple abdominal surgeries. E.coli ESBL UTI --afebrile, no leukocytosis --has been on ceftriaxone, culture back today (+) E.coli ESBL, start meropenem (day #1) Left lower abdominal bowel obstruction Constipation --06/28 CTAP: left lower abdomen focal bowel obstruction, surgical anastamosis in same region; moderate retained stool --start miralax, senna, suppository --seen and evaluated by surgery, medically manage Umbilical hernia --containing several nondilated large and small bowel loops --reducible, not tender Hypertension --BP stable --continue amlodipine Hyperlipidemia --continue Lipitor GERD --continue protonix Dementia --continue topamax FEN Fluids: PO intake adequate Electrolytes: replete as indicated Nutrition: fat/sodium controlled diet DVT prophylaxis: subq heparin Visit type - Emergency Visit Emergency Visit: Yes ED Registration Date: 06/28/19 Care time: The patient presented to the Emergency Department on the above date and was hospitalized for further evaluation of their emergent condition. - New Patient This patient is new to me today: Yes Date on this admission: 07/01/19 - Critical Care Critical Care patient: No - Discharge Referral Referred to [facility] No
[2019-07-01] MEDS: ATORVASTATIN CA 20 MG TABLET (FP) PO SCH (21:28)
[2019-07-01] MEDS: POLYETHYLENE GLYCOL 3350 119 GM BTL PO SCH (21:29)
[2019-07-01] MEDS ORDERED: SENNOSIDES/DOCUSATE COMBO (SENNA PLUS) TABLET (UD) PO SCH (22:00)
[2019-07-02] MEDS ORDERED: DEXTROSE 5%-WATER 100 ML IVPB ONE ×3 (05:35→21:42)
[2019-07-02] MEDS ORDERED: MEROPENEM 1 GM VIAL (RESTRICTED TO ID) IVPB ONE ×3 (05:35→21:42)
[2019-07-02] MEDS: MEROPENEM 1 GM in DEXTROSE 5%-WATER 100 ML IVPB SCH ×3 (06:16→21:54)
[2019-07-02] MEDS: POTASSIUM CHLORIDE TABS 20 MEQ TABLET.ER (FP) PO SCH (07:12)
[2019-07-02] MEDS: IRON CARBONYL 65 MG PO SCH (07:12)
[2019-07-02] MEDS: POLYETHYLENE GLYCOL 3350 119 GM BTL PO SCH ×2 (09:26→21:53)
[2019-07-02] MEDS: FAMOTIDINE 20 MG TABLET PO SCH (09:27)
[2019-07-02] MEDS: HEPARIN NA (PORCINE) 5,000 UNITS/ML 1ML VIAL SQ SCH ×2 (09:27→21:53)
[2019-07-02] MEDS: amLODIPine BESYLATE 2.5 MG TABLET (FP) PO SCH (09:27)
[2019-07-02] MEDS: CHOLECALCIFEROL (VIT D3) 1,000 UNIT (25 MCG) TABLET PO SCH (09:27)
[2019-07-02] MEDS: CYANOCOBALAMIN 1,000 MCG TABLET (FP) PO SCH (09:27)
[2019-07-02] MEDS: TOPIRAMATE 25 MG TABLET (FP) PO SCH ×2 (09:27→21:53)
--- NOTE | 2019-07-02 09:52 | PN ---
Physical Exam: SUBJECTIVE: Patient seen and examined OBJECTIVE: Vital Signs Period Temp Pulse Resp BP Sys/Blevins Pulse Ox Last 24 Hr 97.8 F-98.8 F 66-79 17-18 127-155/61-66 92-98 GENERAL: The patient is awake. Oriented x 1. Confused LUNGS: Breath sounds equal, clear to auscultation bilaterally, no wheezes, no crackles, no accessory muscle use. HEART: Regular rate and rhythm, S1, S2 ABDOMEN: Soft, nontender, nondistended; umbilial hernia, reducible, not tender EXTREMITIES: 2+ pulses, warm, well-perfused, no edema. NEUROLOGICAL: Cranial nerves II through XII grossly intact. Normal speech Active Medications Generic Name Dose Route Start Last Admin Trade Name Freq PRN Reason Stop Dose Admin Acetaminophen 650 mg 06/29/19 00:42 07/01/19 14:28 Tylenol - PO 650 mg Q6H PRN Administration PAIN LEVEL 1-5 Amlodipine Besylate 2.5 mg 06/29/19 10:00 07/02/19 09:27 Norvasc - PO 2.5 mg DAILY KM Administration Atorvastatin Calcium 20 mg 06/29/19 22:00 07/01/19 21:28 Lipitor - PO 20 mg HS KM Administration Cholecalciferol 2,000 unit 06/29/19 10:00 07/02/19 09:27 Vitamin D3 - PO 2,000 unit DAILY KM Administration Cyanocobalamin 2,500 mcg 06/30/19 10:00 07/02/19 09:27 Vitamin B12 - PO 2,500 mcg DAILY KM Administration Famotidine 20 mg 06/29/19 10:00 07/02/19 09:27 Pepcid - PO 20 mg DAILY KM Administration Heparin Sodium (Porcine) 5,000 unit 06/29/19 10:00 07/02/19 09:27 Heparin - SQ 5,000 unit BID KM Administration Meropenem 1 gm/ Dextrose 100 mls @ 200 mls/hr 07/01/19 14:15 07/01/19 14:29 IVPB 200 mls/hr Q8H-IV KM Administration Polyethylene Glycol 17 gm 07/01/19 22:00 07/02/19 09:26 Miralax (For Daily Use) - PO 17 gm BID KM Administration Senna/Docusate Sodium 2 tablet 07/01/19 22:00 07/01/19 21:29 Pericolace - PO 07/02/19 14:39 2 tablet HS KM Administration Topiramate 25 mg 06/29/19 10:00 07/02/19 09:27 Topamax - PO 25 mg BID KM Administration ASSESSMENT/PLAN: 88 year-old female with a PMH significant for HTN, HLD, diastolic HF, GERD, constipation, fecal incontinence, collagenous colitis, iron-deficiency anemia, and dementia. Admitted for UTI and possible SBO. h/o multiple abdominal surgeries. E.coli ESBL UTI --afebrile, no leukocytosis --continue meropenem (day #2) Left lower abdominal bowel obstruction Constipation --06/28 CTAP: left lower abdomen focal bowel obstruction, surgical anastamosis in same region; moderate retained stool --07/02 Xray: no distended loops of small bowel or colon; fecal debris seen througout the colon --enema, miralax, senna --seen and evaluated by surgery, medically manage Umbilical hernia --containing several nondilated large and small bowel loops --reducible, not tender Hypertension --BP stable --continue amlodipine Hyperlipidemia --continue Lipitor GERD --continue protonix Dementia --continue topamax FEN Fluids: PO intake adequate Electrolytes: replete as indicated Nutrition: fat/sodium controlled diet DVT prophylaxis: subq heparin Physical therapy Dispo: continues to require inpatient care. Full code. Visit type - Emergency Visit Emergency Visit: Yes ED Registration Date: 06/28/19 Care time: The patient presented to the Emergency Department on the above date and was hospitalized for further evaluation of their emergent condition. - New Patient This patient is new to me today: No - Critical Care Critical Care patient: No
[2019-07-02] MEDS: ACETAMINOPHEN 325 MG TABLET (FP) PO PRN (12:16)
[2019-07-02] MEDS ORDERED: SODIUM PHOSPHATE/NA BIPHOS 133 ML ENEMA PR ONE (12:46)
[2019-07-02] MEDS ORDERED: MEROPENEM 1 GM in DEXTROSE 5%-WATER 100 ML IVPB SCH (14:00)
--- NOTE | 2019-07-02 15:18 | CON.ID ---
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 Cardio/Vascular: Yes: CHF, HTN, Hyperlipdemia, Murmur Gastrointestinal: Yes: Constipation, GERD, Other (Collagenous Colitis, Abdominal hernia) Hepatobiliary: Yes: Cholelithiasis ...LMP Comment: 89 YEAR OLD ...: No - Past Surgical History Past Surgical History: Yes: Appendectomy, Hernia Repair, Joint Replacement - Alcohol/Substance Use Hx Alcohol Use: No History of Substance Use: reports: None - Smoking History Smoking history: Never smoked Have you smoked in the past 12 months: No - Social History ADL: Support Services History of Recent Travel: No Home Medications - Allergies Allergies/Adverse Reactions: Allergies Allergy/AdvReac Type Severity Reaction Status Date / Time No Known Allergies Allergy Verified 06/28/19 14:37 - Home Medications Home Medications: Ambulatory Orders Alendronate Sodium [Fosamax] 1 tab PO WEEKLY 06/28/19 Amlodipine Besylate 2.5 mg PO DAILY 06/28/19 Aspirin [Aspirin EC] 81 mg PO DAILY 06/28/19 Atorvastatin Ca [Lipitor] 20 mg PO DAILY 06/28/19 Cholecalciferol (Vitamin D3) [D-2000] 2,000 unit PO DAILY 06/28/19 Cyanocobalamin (Vitamin B-12) [B-12] 2,500 mcg SL DAILY 06/28/19 Famotidine [Pepcid] 20 mg PO DAILY 06/28/19 Iron,Carbonyl [Carbonyl Iron] 65 mg PO Q48H 06/28/19 Topiramate [Topamax] 25 mg PO BID 06/28/19 Physical Exam Vital Signs: Vital Signs Temperature 97.5 F L 07/02/19 14:00 Pulse Rate 80 07/02/19 14:00 Respiratory Rate 20 07/02/19 14:00 Blood Pressure 133/65 07/02/19 14:00 O2 Sat by Pulse Oximetry (%) 96 07/02/19 09:26 Labs: CBC, BMP 07/01/19 07:20 07/01/19 07:20
--- NOTE | 2019-07-02 17:16 | DS ---
Physical Exam: SUBJECTIVE: Patient seen and examined OBJECTIVE: Vital Signs Period Temp Pulse Resp BP Sys/Blevins Pulse Ox Last 24 Hr 97.5 F-98.7 F 66-80 17-20 127-155/61-66 95-98 PHYSICAL EXAM GENERAL: The patient is awake. Oriented x 1. Confused. LUNGS: Breath sounds equal, clear to auscultation bilaterally, no wheezes, no crackles, no accessory muscle use. HEART: Regular rate and rhythm, S1, S2 ABDOMEN: Soft, nontender, nondistended; umbilial hernia, reducible, not tender EXTREMITIES: 2+ pulses, warm, well-perfused, no edema. NEUROLOGICAL: Cranial nerves II through XII grossly intact. Normal speech LABS CBCD WBC 6.0 K/mm3 (4.0-10.8) 07/01/19 07:20 RBC 4.68 M/mm3 (3.60-5.2) 07/01/19 07:20 Hgb 14.1 GM/dl (10.7-15.3) 07/01/19 07:20 Hct 42.5 % (32.4-45.2) 07/01/19 07:20 MCV 91.0 fl (80-96) 07/01/19 07:20 MCHC 33.2 g/dl (32.0-36.0) 07/01/19 07:20 RDW 13.6 % (11.6-15.6) 07/01/19 07:20 Plt Count 308 K/MM3 (134-434) 07/01/19 07:20 MPV 8.0 fl (7.5-11.1) 07/01/19 07:20 CMP Sodium 141 mmol/L (136-145) 07/01/19 07:20 Potassium 4.0 mmol/L (3.5-5.1) 07/01/19 07:20 Chloride 108 mmol/L (98-107) H 07/01/19 07:20 Carbon Dioxide 22 mmol/L (21-32) 07/01/19 07:20 Anion Gap 11 MMOL/L (8-16) 07/01/19 07:20 BUN 16.0 mg/dl (7-18) 07/01/19 07:20 Creatinine 0.7 mg/dl (0.55-1.3) 07/01/19 07:20 Calcium 9.2 mg/dl (8.5-10) 07/01/19 07:20 Total Bilirubin 1.3 mg/dl (0.2-1) H 07/01/19 07:20 AST 21 U/L (15-37) 07/01/19 07:20 ALT 25 U/L (13-61) 07/01/19 07:20 Alkaline Phosphatase 118 U/L (45-117) H 07/01/19 07:20 Total Protein 6.7 g/dl (6.4-8.2) 07/01/19 07:20 Albumin 3.1 g/dl (3.4-5.0) L 07/01/19 07:20 HOSPITAL COURSE: Date of Admission:06/28/19 Date of Discharge: 07/02/19 88 year-old female with a PMH significant for HTN, HLD, diastolic HF, GERD, constipation, fecal incontinence, collagenous colitis, iron-deficiency anemia, and dementia. Admitted for UTI and possible SBO. h/o multiple abdominal surgeries. E.coli ESBL UTI --started on meropenem, received 2 doses; will need an additional 12 doses of ertapenem as outpatient --PICC line placed Left lower abdominal bowel obstruction Constipation --initial imaging 06/28 CTAP showed left lower abdomen focal bowel obstruction with a moderate retained stool; was seen and evaluated by surgery, no surgical intervention was indicated --repeat xray on 07/02 showed no distended loops of small bowel or colon --bowel regimen consisted of enema, miralax, senna, should be continued on discharge Umbilical hernia --containing several nondilated large and small bowel loops --reducible, not tender --no surgical intervention Hypertension --BP stable --continued amlodipine Hyperlipidemia --continued Lipitor GERD --continued protonix Dementia --continued topamax Minutes to complete discharge: 35 Discharge Summary Problems reviewed: Yes Reason For Visit: UTI, BACK PAIN Current Active Problems Anemia (Acute) CHF (congestive heart failure) (Acute) Constipation (Acute) Cystitis (Acute) Dementia (Acute) GERD (gastroesophageal reflux disease) (Acute) HLD (hyperlipidemia) (Acute) HTN (hypertension) (Acute) Left lower quadrant abdominal pain (Acute) Lower back pain (Acute) SBO (small bowel obstruction) (Acute) Vitamin B deficiency, unspecified (Acute) Condition: Improved - Instructions Diet, Activity, Other Instructions: The patient is being sent to your facility for IV antibiotic therapy. She is to receive ertapenem 1g IVPB daily x 12 doses. Referrals: Hugo Grace MD [Primary Care Provider] - Disposition: RETIREMENT FACILITY - Home Medications Comprehensive Discharge Medication List: Ambulatory Orders Alendronate Sodium [Fosamax] 1 tab PO WEEKLY 06/28/19 Amlodipine Besylate 2.5 mg PO DAILY 06/28/19 Aspirin [Aspirin EC] 81 mg PO DAILY 06/28/19 Atorvastatin Ca [Lipitor] 20 mg PO DAILY 06/28/19 Cholecalciferol (Vitamin D3) [D-2000] 2,000 unit PO DAILY 06/28/19 Cyanocobalamin (Vitamin B-12) [B-12] 2,500 mcg SL DAILY 06/28/19 Famotidine [Pepcid] 20 mg PO DAILY 06/28/19 Iron,Carbonyl [Carbonyl Iron] 65 mg PO Q48H 06/28/19 Topiramate [Topamax] 25 mg PO BID 06/28/19 This patient is new to me today: No Emergency Visit: Yes ED Registration Date: 06/28/19 Care time: The patient presented to the Emergency Department on the above date and was hospitalized for further evaluation of their emergent condition. Critical Care patient: No - Discharge Referral Referred to [facility] No
[2019-07-02] MEDS: ATORVASTATIN CA 20 MG TABLET (FP) PO SCH (21:53)
[2019-07-03] MEDS ORDERED: DEXTROSE 5%-WATER 100 ML IVPB ONE ×2 (05:47→14:33)
[2019-07-03] MEDS ORDERED: MEROPENEM 1 GM VIAL (RESTRICTED TO ID) IVPB ONE ×2 (05:47→14:34)
[2019-07-03] MEDS: MEROPENEM 1 GM in DEXTROSE 5%-WATER 100 ML IVPB SCH ×2 (06:30→14:35)
[2019-07-03] MEDS: FAMOTIDINE 20 MG TABLET PO SCH (09:45)
[2019-07-03] MEDS: HEPARIN NA (PORCINE) 5,000 UNITS/ML 1ML VIAL SQ SCH (09:45)
[2019-07-03] MEDS: CYANOCOBALAMIN 1,000 MCG TABLET (FP) PO SCH (09:46)
[2019-07-03] MEDS: TOPIRAMATE 25 MG TABLET (FP) PO SCH (09:46)
[2019-07-03] MEDS: CHOLECALCIFEROL (VIT D3) 1,000 UNIT (25 MCG) TABLET PO SCH (09:46)
[2019-07-03] MEDS: amLODIPine BESYLATE 2.5 MG TABLET (FP) PO SCH (09:46)
[2019-07-03 14:12] VITALS: BP 129/85; PULSE 83; TEMP 97.4
[2019-07-03] MEDS: POLYETHYLENE GLYCOL 3350 119 GM BTL PO SCH (14:33)
--- NOTE | 2019-07-03 14:59 | PN ---
Progress Note, Physician History of Present Illness: stable no new issues picc line placed - Current Medication List Current Medications: Active Medications Acetaminophen (Tylenol -) 650 mg PO Q6H PRN PRN Reason: PAIN LEVEL 1-5 Last Admin: 07/02/19 12:16 Dose: 650 mg Amlodipine Besylate (Norvasc -) 2.5 mg PO DAILY [facility] Last Admin: 07/03/19 09:46 Dose: 2.5 mg Atorvastatin Calcium (Lipitor -) 20 mg PO HS [facility] Last Admin: 07/02/19 21:53 Dose: 20 mg Cholecalciferol (Vitamin D3 -) 2,000 unit PO DAILY [facility] Last Admin: 07/03/19 09:46 Dose: 2,000 unit Cyanocobalamin (Vitamin B12 -) 2,500 mcg PO DAILY [facility] Last Admin: 07/03/19 09:46 Dose: 2,500 mcg Famotidine (Pepcid -) 20 mg PO DAILY [facility] Last Admin: 07/03/19 09:45 Dose: 20 mg Heparin Sodium (Porcine) (Heparin -) 5,000 unit SQ BID [facility] Last Admin: 07/03/19 09:45 Dose: 5,000 unit Meropenem 1 gm/ Dextrose 100 mls @ 200 mls/hr IVPB Q8H [facility] Last Admin: 07/03/19 14:35 Dose: 200 mls/hr Polyethylene Glycol (Miralax (For Daily Use) -) 17 gm PO BID [facility] Last Admin: 07/03/19 14:33 Dose: 17 gm Topiramate (Topamax -) 25 mg PO BID [facility] Last Admin: 07/03/19 09:46 Dose: 25 mg - Objective Vital Signs: Vital Signs Temperature 97.4 F L 07/03/19 14:00 Pulse Rate 83 07/03/19 14:00 Respiratory Rate 17 07/03/19 14:00 Blood Pressure 129/85 07/03/19 14:00 O2 Sat by Pulse Oximetry (%) 98 07/03/19 14:00 Constitutional: Yes: No Distress, Calm Cardiovascular: Yes: S1, S2 Respiratory: Yes: Regular, CTA Bilaterally Gastrointestinal: Yes: Normal Bowel Sounds, Soft Musculoskeletal: Yes: WNL Extremities: Yes: WNL Neurological: Yes: Alert, Oriented, Confusion Psychiatric: Yes: Alert Labs: CBC, BMP 07/01/19 07:07/01/19 07:20 Assessment/Plan 88 year-old female with a PMH significant for HTN, HLD, diastolic HF, GERD, constipation, fecal incontinence, collagenous colitis, iron-deficiency anemia, and dementia. Admitted for UTI and possible SBO. h/o multiple abdominal surgeries. E.coli ESBL UTI Left lower abdominal bowel obstruction Constipation Umbilical hernia Hypertension Hyperlipidemia GERD Dementia plan continue abx finish the abx course as planned
== END 2019-07-03 16:00 | DRG 690 ==
LOC: FER 13:30 → FM/S 22:56 → EDBD 22:56 → FM/S 06-29 00:48
PROVIDERS: ADMIT Internal Medicine; ATTEND Nurse Practitioner Acute Care
DX: N39.0 Urinary tract infection, site not specified (principal); I50.32 Chronic diastolic (congestive) heart failure; F03.90 Unspecified dementia, unspecified severity, without behavioral disturbance, psychotic disturbance, mood disturbance, and anxiety; M81.0 Age-related osteoporosis without current pathological fracture; K21.9 Gastro-esophageal reflux disease without esophagitis; E78.5 Hyperlipidemia, unspecified; D50.9 Iron deficiency anemia, unspecified; I11.0 Hypertensive heart disease with heart failure; E53.8 Deficiency of other specified B group vitamins; K59.00 Constipation, unspecified; N28.1 Cyst of kidney, acquired; E87.6 Hypokalemia; B96.20 Unspecified Escherichia coli [E. coli] as the cause of diseases classified elsewhere; K42.9 Umbilical hernia without obstruction or gangrene
CPT/HCPCS: 36415; 36569; 71045-TC-FY; 73523-TC-FY; 74018-TC-FY; 74177-TC; 77001-TC-FY; 80053; 81003; 81015; 82248; 83735; 84100; 85025; 85027; 87086; 87186; 93005; 97116-GP; 97162-GP; 99283-25; C1751; J0131; J1644

== ENCOUNTER 2019-07-30 16:47 | Inpatient (IN) | payer MEDICARE, OTHER ==
--- NOTE | 2019-07-30 17:09 | PDOC ---
History of Present Illness - General Chief Complaint: Injury Stated Complaint: FALL, LOST BALANCE Time Seen by Provider: 07/30/19 16:51 History Source: Family Exam Limitations: Clinical Condition, Dementia - History of Present Illness Initial Comments: 07/30/19 17:09 89 year-old female with a PMH significant for HTN, HLD, diastolic HF, GERD, constipation, fecal incontinence, collagenous colitis, umbilical hernia, iron- deficiency anemia, and dementia presenting with mechanical fall witnessed by and c/o lower back pain. she was walking without her walker when she lost her balance and fell back, hitting her head and back. per health aide, +urinary sx, dark malodorour urine, since coming back from [facility] last week. +baseline with chronic urinary incontinence, uses diapers. recently admitted 1 month ago in June for ESBL UTI, finished antibiotic course - meropenem at the time, and then dc'd to [facility] rehab. history limited 2/2 dementia, provided with support from EMS and home health aid. ROS: limited 2/2 dementia. 07/30/19 17:10 07/30/19 17:12 07/30/19 17:27 07/30/19 18:02 07/30/19 18:57 Past History - Past Medical History Allergies/Adverse Reactions: Allergies Allergy/AdvReac Type Severity Reaction Status Date / Time No Known Allergies Allergy Verified 07/30/19 16:50 Home Medications: Ambulatory Orders Alendronate Sodium [Fosamax] 1 tab PO WEEKLY 06/28/19 Amlodipine Besylate 2.5 mg PO DAILY 06/28/19 Aspirin [Aspirin EC] 81 mg PO DAILY 06/28/19 Atorvastatin Ca [Lipitor] 20 mg PO DAILY 06/28/19 Cholecalciferol (Vitamin D3) [D3-2000] 2,000 unit PO DAILY 06/28/19 Cyanocobalamin (Vitamin B-12) [B-12] 2,500 mcg SL DAILY 06/28/19 Famotidine [Pepcid] 20 mg PO DAILY 06/28/19 Iron,Carbonyl [Carbonyl Iron] 65 mg PO Q48H 06/28/19 Topiramate [Topamax] 25 mg PO BID 06/28/19 COPD: No Dementia: Yes GI Disorders: Yes (GERD) HTN: Yes Hypercholesterolemia: Yes Liver Disease: (CHOLELITHIASIS) - Surgical History Abdominal Surgery: Yes (INGUINAL HERNIA X2) Appendectomy: Yes GI Surgery: Yes (RECTAL PROLAPSE) - Psycho Social/Smoking Cessation Hx Smoking History: Never smoked Have you smoked in the past 12 months: No Information on smoking cessation initiated: No Hx Alcohol Use: No Drug/Substance Use Hx: No Review of Systems - Review of Systems Able to Perform ROS?: No (dementia) *Physical Exam - Vital Signs Last Vital Signs Temp Pulse Resp BP Pulse Ox 98 F 85 20 142/95 98 07/30/19 16:49 07/30/19 16:49 07/30/19 16:49 07/30/19 16:49 07/30/19 16:49 - Physical Exam 07/30/19 17:28 Physical exam: General: GCS 14 - NAD, well appearing, pleasantly demented HEENT: NCAT, PERRL, EOMI. Airway intact. No battles sign or raccoon eyes. No e/ o ocular. Dentition intact. No e/o septal hematoma, nasal bridge stable. Neck: neck supple, no midline C spine tenderness or deformity, ROM intact. No anterior mass or crepitus, trachea midline. Resp: Lungs clear bilaterally Chest: no clavicle or chest wall tenderness or crepitus CVS: RRR, 2+ pulses throughout. Abdomen: Abdomen soft, nontender, nondistended. soft umbilical hernia, reducible; no skin changes. Back: Back with midline spinal tenderness along mid thoracic/lumbar spine, + mild paravertebral tenderness, ROM limited 2/2 pain, no stepoffs. MSK: Pelvis stable, Extremities symmetric, no focal areas of tenderness or deformities, proximal and distally; no pain on axial loading. FROM in all extrem. Neuro: Alert, oriented to person and place only, demented. CN II-XII grossly symmetric and intact. no focal neuro deficits. Sensation and strength intact throughout. Gait normal/stable. Skin: intact, normal color and well perfused. ED Treatment Course - LABORATORY CBC & Chemistry Diagram: 07/31/19 07:30 07/31/19 07:30 Medical Decision Making - Medical Decision Making 07/30/19 17:09 Vital Signs Temp Pulse Resp BP Pulse Ox 98 F 85 20 142/95 98 07/30/19 16:49 07/30/19 16:49 07/30/19 16:49 07/30/19 16:49 07/30/19 16:49 Trauma ddx: ICH, SDH/ EDH, C spine injury/strain, extremity sprain/fracture, pelvis fracture. MSK contusion, msk spasms. Rib fractures. Clinically doubt Intra abdominal and thoracic injuries/bleed, lumbar strain, compression fracture , muscle spasm, UTI Trauma Neg: No evidence of skull fracture, intracranial bleed, dental trauma, cervical, thoracic, or vertebral fracture or subluxation, no suspicion of thoracic, abdominal, pelvic or extremity injury by exam. will check UA, now with new sx x 1 week 07/30/19 18:02 - UA with nitrites, wbcs luigi with acute UTI with her acuity of sx prior urine culture with ESBL UTI, will treat with meropenem again CTs pending, obtained, L1 compression fx preliminarily CT head neg for bleed/skull fx or acute injuries s/o Dr Flores with remainder of workup and admission prelim s/o to [facility] for admission ultimately. pending labs, IVF and the first dose abx. 07/31/19 14:27 Discharge - Discharge Information Problems reviewed: Yes Clinical Impression/Diagnosis: Lumbar compression fracture Qualifiers: Encounter type: initial encounter Lumbar vertebra fracture level: L1 Qualified Code(s): S32.010A - Wedge compression fracture of first lumbar vertebra, initial encounter for closed fracture UTI (urinary tract infection) Qualifiers: Urinary tract infection type: acute cystitis Hematuria presence: without hematuria Qualified Code(s): N30.00 - Acute cystitis without hematuria Condition: Guarded - Admission Yes - Follow up/Referral - Patient Discharge Instructions - Post Discharge Activity
[2019-07-30] MEDS ORDERED: ACETAMINOPHEN 325 MG TABLET (FP) PO ONE (18:06)
[2019-07-30] MEDS ORDERED: LIDOCAINE 5% TOPICAL PATCH TP ONE (18:06)
[2019-07-30 18:38] LABS: EPITHELIAL CELLS FEW /hpf
[2019-07-30] MEDS ORDERED: MEROPENEM 1 GM in DEXTROSE 5%-WATER 100 ML IVPB ONE (18:57)
[2019-07-30] MEDS ORDERED: ACETAMINOPHEN 500 MG TABLET (FP) ONE (19:16)
[2019-07-30] MEDS ORDERED: LIDOCAINE 5% TOPICAL PATCH ONE (19:17)
[2019-07-30 19:53] LABS: BASO % 0.5 % (0-2.0); EOS % 7.4 % (0-4.5); HEMATOCRIT 43.7 % (32.4-45.2); HEMOGLOBIN 14.4 GM/dl (10.7-15.3); LYMPH % 22.8 % (8-40); MCH 30.1 pg (25.7-33.7); MCHC 32.9 g/dl (32.0-36.0); MEAN CELL VOLUME 91.5 fl (80-96); MEAN PLT VOLUME 8.3 fl (7.5-11.1); MONO % 6.2 % (3.8-10.2); NEUT % 63.1 % (42.8-82.8); PLATELET COUNT 397 K/MM3 (134-434); RBC 4.78 M/mm3 (3.60-5.2); RDW 14.8 % (11.6-15.6); WHITE BLOOD COUNT 12.7 K/mm3 (4.0-10.8)
[2019-07-30 20:00] LABS: ALBUMIN 2.9 g/dl (3.4-5.0); BILIRUBIN,TOTAL 1.4 mg/dl (0.2-1); CALCIUM 8.5 mg/dl (8.5-10); CREATININE 0.6 mg/dl (0.55-1.3); POTASSIUM 3.9 mmol/L (3.5-5.1); TOT PROT 6.6 g/dl (6.4-8.2)
--- NOTE | 2019-07-30 21:22 | PDOC ---
*Physical Exam - Vital Signs Last Vital Signs Temp Pulse Resp BP Pulse Ox 98 F 85 20 142/95 98 07/30/19 16:49 07/30/19 16:49 07/30/19 16:49 07/30/19 16:49 07/30/19 16:49 ED Treatment Course - LABORATORY CBC & Chemistry Diagram: 07/30/19 19:20 07/30/19 19:20 - ADDITIONAL ORDERS Additional order review: Laboratory Results 07/30/19 07/30/19 19:20 18:11 Sodium 135 L Potassium 3.9 Chloride 107 Carbon Dioxide 23 Anion Gap 5 L BUN 13.0 Creatinine 0.6 Est GFR (CKD-EPI)AfAm 93.66 Est GFR (CKD-EPI)NonAf 80.81 Random Glucose 125 H Calcium 8.5 Total Bilirubin 1.4 H AST 24 ALT 21 Alkaline Phosphatase 109 Total Protein 6.6 Albumin 2.9 L Urine Color Yellow Urine Appearance Slightly Urine pH 5.5 Urine Protein 1+ H Urine Glucose (UA) Negative Urine Ketones Trace Urine Blood 1+ H Urine Nitrite Positive H Urine Bilirubin 1+ H Urine Urobilinogen 0.2 Ur Leukocyte Esterase 1+ Urine RBC 5-10 Urine WBC >100 Ur Transition Epith Cell Few Urine Bacteria Many 07/30/19 19:20 RBC 4.78 MCV 91.5 MCHC 32.9 RDW 14.8 MPV 8.3 Neutrophils % 63.1 Lymphocytes % 22.8 Monocytes % 6.2 Eosinophils % 7.4 H Basophils % 0.5 - Medications Given in the ED: ED Medications Discontinued Medications Generic Name Dose Route Start Last Admin Trade Name Freq PRN Reason Stop Dose Admin Acetaminophen 1,000 mg 07/30/19 18:06 07/30/19 19:21 Tylenol - PO 07/30/19 18:07 1,000 mg ONCE ONE Administration Meropenem 1 gm/ Dextrose 100 mls @ 200 mls/hr 07/30/19 18:57 07/30/19 19:22 IVPB 07/30/19 19:26 200 mls/hr ONCE ONE Administration Lidocaine 1 patch 07/30/19 18:06 07/30/19 19:22 Lidoderm Patch - TP 07/30/19 18:07 1 patch ONCE ONE Administration ED Progress Note - Progress Note Progress Note: Care of this patient received from Dr. Barbosa. Patient presents with recurrent UTI and back pain after a fall. CT of the cervical, thoracic and lumbar spine performed: Interpretation by Dr. Jones of the radiology staffin comparison to CT study of 06-28-19 there is interval development of acute to subacute moderate to marked L1 vertebral body compression fracture with mild bony retropulsion CT of the head without contrast showed no evidence of acute intracranial pathology Laboratory evaluation notable for elevated white blood cell count of 12,700. Remainder of the CBC and Chemistry profile essentially negative for abnormality. [facility] had spoken to MORIAH Davison prior to results of CT scan and laboratory evaluation were available. Micro blog message sent to [facility] after results are known. [facility] Discharge - Discharge Information Problems reviewed: Yes Clinical Impression/Diagnosis: Lumbar compression fracture Qualifiers: Encounter type: initial encounter Lumbar vertebra fracture level: L1 Qualified Code(s): S32.010A - Wedge compression fracture of first lumbar vertebra, initial encounter for closed fracture UTI (urinary tract infection) Qualifiers: Urinary tract infection type: acute cystitis Hematuria presence: without hematuria Qualified Code(s): N30.00 - Acute cystitis without hematuria Condition: Guarded - Admission Yes - Follow up/Referral - Patient Discharge Instructions - Post Discharge Activity
[2019-07-30 22:41] VITALS: BMI 25.0
[2019-07-31] MEDS: HEPARIN NA (PORCINE) 5,000 UNITS/ML 1ML VIAL SQ SCH ×3 (05:36→21:09)
[2019-07-31 08:04] LABS: BASO % 0.5 % (0-2.0); EOS % 10.8 % (0-4.5); HEMATOCRIT 39.1 % (32.4-45.2); LYMPH % 19.8 % (8-40); MCH 30.3 pg (25.7-33.7); MCHC 33.3 g/dl (32.0-36.0); MEAN CELL VOLUME 91.1 fl (80-96); MONO % 6.2 % (3.8-10.2); NEUT % 62.7 % (42.8-82.8); PLATELET COUNT 354 K/MM3 (134-434); RBC 4.29 M/mm3 (3.60-5.2); WHITE BLOOD COUNT 9.4 K/mm3 (4.0-10.8)
--- NOTE | 2019-07-31 08:07 | HP ---
CHIEF COMPLAINT: PCP: HISTORY OF PRESENT ILLNESS: ER course was notable for: (1) (2) (3) Recent Travel: PAST MEDICAL HISTORY: PAST SURGICAL HISTORY: Social History: Smoking: Alcohol: Drugs: Allergies No Known Allergies Allergy (Verified 07/30/19 16:50) HOME MEDICATIONS: Home Medications Medication Instructions Recorded Alendronate Sodium [Fosamax] 1 tab PO WEEKLY 06/28/19 Amlodipine Besylate 2.5 mg PO DAILY 06/28/19 Aspirin [Aspirin EC] 81 mg PO DAILY 06/28/19 Atorvastatin Ca [Lipitor] 20 mg PO DAILY 06/28/19 Cholecalciferol (Vitamin D3) 2,000 unit PO DAILY 06/28/19 [D3-2000] Cyanocobalamin (Vitamin B-12) 2,500 mcg SL DAILY 06/28/19 [B-12] Famotidine [Pepcid] 20 mg PO DAILY 06/28/19 Iron,Carbonyl [Carbonyl Iron] 65 mg PO Q48H 06/28/19 Topiramate [Topamax] 25 mg PO BID 06/28/19 REVIEW OF SYSTEMS CONSTITUTIONAL: Absent: fever, chills, diaphoresis, generalized weakness, malaise, loss of appetite, weight change HEENT: Absent: rhinorrhea, nasal congestion, throat pain, throat swelling, difficulty swallowing, mouth swelling, ear pain, eye pain, visual changes CARDIOVASCULAR: Absent: chest pain, syncope, palpitations, irregular heart rate, lightheadedness , peripheral edema RESPIRATORY: Absent: cough, shortness of breath, dyspnea with exertion, orthopnea, wheezing, stridor, hemoptysis GASTROINTESTINAL: Absent: abdominal pain, abdominal distension, nausea, vomiting, diarrhea, constipation, melena, hematochezia GENITOURINARY: Absent: dysuria, frequency, urgency, hesitancy, hematuria, flank pain, genital pain MUSCULOSKELETAL: Absent: myalgia, arthralgia, joint swelling, back pain, neck pain SKIN: Absent: rash, itching, pallor HEMATOLOGIC/IMMUNOLOGIC: Absent: easy bleeding, easy bruising, lymphadenopathy, frequent infections ENDOCRINE: Absent: unexplained weight gain, unexplained weight loss, heat intolerance, cold intolerance NEUROLOGIC: Absent: headache, focal weakness or paresthesias, dizziness, unsteady gait, seizure, mental status changes, bladder or bowel incontinence PSYCHIATRIC: Absent: anxiety, depression, suicidal or homicidal ideation, hallucinations. PHYSICAL EXAMINATION Vital Signs - 24 hr 07/30/19 07/30/19 07/30/19 16:49 21:58 22:22 Temperature 98 F 97.8 F Pulse Rate 85 72 Pulse Rate [ 72 Left] Respiratory 20 15 18 Rate Blood Pressure 142/95 135/64 Blood Pressure 129/77 [Right] O2 Sat by Pulse 98 96 97 Oximetry (%) 07/31/19 07/31/19 05:27 05:32 Temperature 98.9 F Pulse Rate 80 Pulse Rate [ Left] Respiratory 17 Rate Blood Pressure 119/58 L Blood Pressure [Right] O2 Sat by Pulse 97 Oximetry (%) GENERAL: Awake, alert, and fully oriented, in no acute distress. HEAD: Normal with no signs of trauma. EYES: Pupils equal, round and reactive to light, extraocular movements intact, sclera anicteric, conjunctiva clear. No lid lag. EARS, NOSE, THROAT: Ears normal, nares patent, oropharynx clear without exudates. Moist mucous membranes. NECK: Normal range of motion, supple without lymphadenopathy, JVD, or masses. LUNGS: Breath sounds equal, clear to auscultation bilaterally. No wheezes, and no crackles. No accessory muscle use. HEART: Regular rate and rhythm, normal S1 and S2 without murmur, rub or gallop. ABDOMEN: Soft, nontender, not distended, normoactive bowel sounds, no guarding, no rebound, no masses. No hepatomegaly or splenomegaly. MUSCULOSKELETAL: Normal range of motion at all joints. No bony deformities or tenderness. No CVA tenderness. UPPER EXTREMITIES: 2+ pulses, warm, well-perfused. No cyanosis. No clubbing. No peripheral edema. LOWER EXTREMITIES: 2+ pulses, warm, well-perfused. No calf tenderness. No peripheral edema. NEUROLOGICAL: Cranial nerves II-XII intact. Normal speech. Normal gait. PSYCHIATRIC: Cooperative. Good eye contact. Appropriate mood and affect. SKIN: Warm, dry, normal turgor, no rashes or lesions noted, normal capillary refill. Laboratory Results - last 24 hr 07/30/19 07/30/19 07/30/19 18:11 19:20 19:20 WBC 12.7 H RBC 4.78 Hgb 14.4 Hct 43.7 MCV 91.5 MCH 30.1 MCHC 32.9 RDW 14.8 Plt Count 397 MPV 8.3 Absolute Neuts (auto) 8.0 Neutrophils % 63.1 Lymphocytes % 22.8 Monocytes % 6.2 Eosinophils % 7.4 H Basophils % 0.5 Sodium 135 L Potassium 3.9 Chloride 107 Carbon Dioxide 23 Anion Gap 5 L BUN 13.0 Creatinine 0.6 Est GFR (CKD-EPI)AfAm 93.66 Est GFR (CKD-EPI)NonAf 80.81 Random Glucose 125 H Calcium 8.5 Phosphorus Total Bilirubin 1.4 H AST 24 ALT 21 Alkaline Phosphatase 109 Total Protein 6.6 Albumin 2.9 L Urine Color Yellow Urine Appearance Slightly Urine pH 5.5 Urine Protein 1+ H Urine Glucose (UA) Negative Urine Ketones Trace Urine Blood 1+ H Urine Nitrite Positive H Urine Bilirubin 1+ H Urine Urobilinogen 0.2 Ur Leukocyte Esterase 1+ Urine RBC 5-10 Urine WBC >100 Ur Transition Epith Cell Few Urine Bacteria Many 07/31/19 00:00 WBC RBC Hgb Hct MCV MCH MCHC RDW Plt Count MPV Absolute Neuts (auto) Neutrophils % Lymphocytes % Monocytes % Eosinophils % Basophils % Sodium Potassium Chloride Carbon Dioxide Anion Gap BUN Creatinine Est GFR (CKD-EPI)AfAm Est GFR (CKD-EPI)NonAf Random Glucose Calcium Phosphorus 2.7 Total Bilirubin AST ALT Alkaline Phosphatase Total Protein Albumin Urine Color Urine Appearance Urine pH Urine Protein Urine Glucose (UA) Urine Ketones Urine Blood Urine Nitrite Urine Bilirubin Urine Urobilinogen Ur Leukocyte Esterase Urine RBC Urine WBC Ur Transition Epith Cell Urine Bacteria ASSESSMENT/PLAN:
[2019-07-31 08:19] LABS: ALBUMIN 2.6 g/dl (3.4-5.0); BILIRUBIN,TOTAL 1.4 mg/dl (0.2-1); CALCIUM 8.1 mg/dl (8.5-10); CREATININE 0.6 mg/dl (0.55-1.3); MAGNESIUM 2.1 mg/dL (1.8-2.4); TOT PROT 5.9 g/dl (6.4-8.2)
--- NOTE | 2019-07-31 08:47 | HP ---
CHIEF COMPLAINT: Fall PCP: Dr. Hugo Grace HISTORY OF PRESENT ILLNESS: 88 year-old female with a PMH significant for HTN, HLD, diastolic HF, GERD, constipation, urinary and fecal incontinence, collagenous colitis, iron- deficiency anemia, PUD and dementia. Recently hospitalized for UTI (06/28-07/02/19 ), discharged from [facility] last week. Brought to ED following a mechanical fall , observed patient walking without her walker, lose her balance and fall backward hitting her head and back. Aide has noticed malodorous, dark urine. ER course was notable for: (1) WBC 12.7k, afebrile (2) Pyuria: >100WBCs Recent Travel: No PAST MEDICAL HISTORY: Hypertension Hyperlipidemia Diastolic heart failure GERD Constipation Urinary/fecal incontinence Collagenous colitis Iron-deficiency anemia Dementia Peptic ulcer disease PAST SURGICAL HISTORY: Appendectomy Inguinal hernia repair x 2 Joint replacement Tonsillectomy Stomach resection for severe ulcer disease Rectal prolapse repair ORIF left femoral neck fracture Social History: Smoking: never Alcohol: no Drugs: no Allergies No Known Allergies Allergy (Verified 07/30/19 16:50) HOME MEDICATIONS: Home Medications Medication Instructions Recorded Alendronate Sodium [Fosamax] 1 tab PO WEEKLY 06/28/19 Amlodipine Besylate 2.5 mg PO DAILY 06/28/19 Aspirin [Aspirin EC] 81 mg PO DAILY 06/28/19 Atorvastatin Ca [Lipitor] 20 mg PO DAILY 06/28/19 Cholecalciferol (Vitamin D3) 2,000 unit PO DAILY 06/28/19 [D3-2000] Cyanocobalamin (Vitamin B-12) 2,500 mcg SL DAILY 06/28/19 [B-12] Famotidine [Pepcid] 20 mg PO DAILY 06/28/19 Iron,Carbonyl [Carbonyl Iron] 65 mg PO Q48H 06/28/19 Topiramate [Topamax] 25 mg PO BID 06/28/19 REVIEW OF SYSTEMS: unable to obtain secondary to dementia PHYSICAL EXAMINATION Vital Signs - 24 hr 07/30/19 07/30/19 07/30/19 16:49 21:58 22:22 Temperature 98 F 97.8 F Pulse Rate 85 72 Pulse Rate [ 72 Left] Respiratory 20 15 18 Rate Blood Pressure 142/95 135/64 Blood Pressure 129/77 [Right] O2 Sat by Pulse 98 96 97 Oximetry (%) 07/31/19 07/31/19 05:27 05:32 Temperature 98.9 F Pulse Rate 80 Pulse Rate [ Left] Respiratory 17 Rate Blood Pressure 119/58 L Blood Pressure [Right] O2 Sat by Pulse 97 Oximetry (%) GENERAL: Awake, A&Ox1; speech is confused, drifts off HEAD: Normal with no signs of trauma. EYES: Pupils equal, round and reactive to light, extraocular movements intact, sclera anicteric, conjunctiva clear. No lid lag. LUNGS: Breath sounds equal, clear to auscultation bilaterally. No wheezes, and no crackles. No accessory muscle use. HEART: Regular rate and rhythm, normal S1 and S2 ABDOMEN: Soft, nontender, not distended UPPER EXTREMITIES: 2+ pulses, warm, well-perfused. No cyanosis. No clubbing. No peripheral edema. LOWER EXTREMITIES: 2+ pulses, warm, well-perfused. No calf tenderness. No peripheral edema. NEUROLOGICAL: Cranial nerves II-XII intact. Normal speech. Slow, steady gait with walker during PT. Laboratory Results - last 24 hr 07/30/19 07/30/19 07/30/19 18:11 19:20 19:20 WBC 12.7 H RBC 4.78 Hgb 14.4 Hct 43.7 MCV 91.5 MCH 30.1 MCHC 32.9 RDW 14.8 Plt Count 397 MPV 8.3 Absolute Neuts (auto) 8.0 Neutrophils % 63.1 Lymphocytes % 22.8 Monocytes % 6.2 Eosinophils % 7.4 H Basophils % 0.5 Sodium 135 L Potassium 3.9 Chloride 107 Carbon Dioxide 23 Anion Gap 5 L BUN 13.0 Creatinine 0.6 Est GFR (CKD-EPI)AfAm 93.66 Est GFR (CKD-EPI)NonAf 80.81 Random Glucose 125 H Calcium 8.5 Phosphorus Magnesium Total Bilirubin 1.4 H AST 24 ALT 21 Alkaline Phosphatase 109 Total Protein 6.6 Albumin 2.9 L Urine Color Yellow Urine Appearance Slightly Urine pH 5.5 Urine Protein 1+ H Urine Glucose (UA) Negative Urine Ketones Trace Urine Blood 1+ H Urine Nitrite Positive H Urine Bilirubin 1+ H Urine Urobilinogen 0.2 Ur Leukocyte Esterase 1+ Urine RBC 5-10 Urine WBC >100 Ur Transition Epith Cell Few Urine Bacteria Many 07/31/19 07/31/19 07/31/19 00:00 07:30 07:30 WBC 9.4 RBC 4.29 Hgb 13.0 Hct 39.1 MCV 91.1 MCH 30.3 MCHC 33.3 RDW 15.0 Plt Count 354 MPV 8.0 Absolute Neuts (auto) 5.9 Neutrophils % 62.7 Lymphocytes % 19.8 Monocytes % 6.2 Eosinophils % 10.8 H Basophils % 0.5 Sodium 136 Potassium 3.0 L Chloride 107 Carbon Dioxide 24 Anion Gap 5 L BUN 11.0 Creatinine 0.6 Est GFR (CKD-EPI)AfAm 93.66 Est GFR (CKD-EPI)NonAf 80.81 Random Glucose 114 H Calcium 8.1 L Phosphorus 2.7 Magnesium 2.1 Total Bilirubin 1.4 H AST 20 ALT 18 Alkaline Phosphatase 99 D Total Protein 5.9 L Albumin 2.6 L Urine Color Urine Appearance Urine pH Urine Protein Urine Glucose (UA) Urine Ketones Urine Blood Urine Nitrite Urine Bilirubin Urine Urobilinogen Ur Leukocyte Esterase Urine RBC Urine WBC Ur Transition Epith Cell Urine Bacteria ASSESSMENT/PLAN: 88 year-old female with a PMH significant for HTN, HLD, diastolic HF, GERD, constipation, urinary and fecal incontinence, collagenous colitis, iron- deficiency anemia, PUD and dementia. Recently hospitalized for UTI (06/28-07/02/19 ), discharged from [facility] last week. Brought to ED following a mechanical fall. Mechanical fall --witnessed fall, no syncope, no LOC --CT head: no acute pathology Compression fracture --07/30 CT spine: acute v. subacute L1 vertebral compression fracture with mild bony retropulsion; chronic compression fractures T7,T8 --does not complain of pain, no exhibited signs of pain; seen walking with PT earlier today, waiting for PT assessment --ortho consult requested Pyuria --afebrile, WBC has normalized, and asymptomatic --recently completed 10-day course of meropenem --observe off antibiotics --encourage PO intake Hypertension --BP stable --continue amlodipine Hyperlipidemia --continue atorvastatin Diastolic heart failure --euvolemic --not on diuretics GERD --continue Pepcid Dementia --continue topiramate Hypokalemia --replete FEN Fluids: PO intake adequate Electrolytes: replete as indicated Nutrition: low sodium Physical therapy DVT prophylaxis: subq heparin Dispo: continues to require inpatient care. Full code. Visit type - Emergency Visit Emergency Visit: Yes ED Registration Date: 07/30/19 Care time: The patient presented to the Emergency Department on the above date and was hospitalized for further evaluation of their emergent condition. - New Patient This patient is new to me today: Yes Date on this admission: 07/31/19 - Critical Care Critical Care patient: No
[2019-07-31] MEDS: ASPIRIN COATED 81 MG TABLET.EC PO SCH (09:34)
[2019-07-31] MEDS: CHOLECALCIFEROL (VIT D3) 1,000 UNIT (25 MCG) TABLET PO SCH (09:34)
[2019-07-31] MEDS: TOPIRAMATE 25 MG TABLET (FP) PO SCH ×2 (09:34→21:09)
[2019-07-31] MEDS: amLODIPine BESYLATE 2.5 MG TABLET (FP) PO SCH (09:35)
[2019-07-31] MEDS: CYANOCOBALAMIN 1,000 MCG TABLET (FP) PO SCH (09:35)
[2019-07-31] MEDS: FAMOTIDINE 20 MG TABLET PO SCH (09:36)
[2019-07-31] MEDS ORDERED: ACETAMINOPHEN 325 MG TABLET (FP) ONE (15:00)
--- NOTE | 2019-07-31 20:16 | CONSULT ---
Consult - text type - Consultation Consultation Note: ORTHOPEDIC SURGERY CONSULTATION NOTE Department of Orthopedic Surgery HISTORY OF PRESENT ILLNESS Genevieve Howell is an 89 year old female who was admitted to [facility] with back pain after a mechanical fall. She has a past medical history significant for HTN, HLD , diastolic HF, GERD, constipation, urinary and fecal incontinence, collagenous colitis, iron-deficiency anemia, PUD and dementia. The orthopedic service was consulted for a lumbar vertebral compression fracture. The injury occurred yesterday. The patient notes pain in her lumbar area which improves with rest. Denies any other injuries. Denies numbness, tingling or other constitutional complaints. Denies tobacco use, drug use, alcohol abuse. The patient lives with family and uses a walker at baseline. Active Problems Problem Status Category Onset Lumbar compression fracture Acute Medical UTI (urinary tract infection) Acute Medical Past Medical History [employer] Dementia Cardio/Vascular CHF,HTN,Hyperlipdemia,Murmur Gastrointestinal Constipation,GERD,Other Hepatobiliary Cholelithiasis Heme/Onc Anemia,B12 Deficiency Past Surgical History Past Surgical History Appendectomy,Hernia Repair,Joint Replacement Social History Smoking history Never smoked Hx Alcohol Use No History of Substance Use None ADL Support Services History of Recent Travel No Allergies Allergy/AdvReac Type Severity Reaction Status Date / Time No Known Allergies Allergy Verified 07/30/19 16:50 Active Medications Generic Name Dose Route Start Last Admin Trade Name Freq PRN Reason Stop Dose Admin Amlodipine Besylate 2.5 mg 07/31/19 10:00 07/31/19 09:35 Norvasc - PO 2.5 mg DAILY KM Administration Aspirin 81 mg 07/31/19 10:00 07/31/19 09:34 Ecotrin - PO 81 mg DAILY KM Administration Atorvastatin Calcium 20 mg 07/31/19 22:00 Lipitor - PO HS KM Cholecalciferol 2,000 unit 07/31/19 10:00 07/31/19 09:34 Vitamin D3 - PO 2,000 unit DAILY KM Administration Cyanocobalamin 2,500 mcg 07/31/19 10:00 07/31/19 09:35 Vitamin B12 - PO 2,500 mcg DAILY KM Administration Famotidine 20 mg 07/31/19 10:00 07/31/19 09:36 Pepcid - PO 20 mg DAILY KM Administration Heparin Sodium (Porcine) 5,000 unit 07/31/19 06:00 07/31/19 14:00 Heparin - SQ 5,000 unit TID KM Administration Topiramate 25 mg 07/31/19 10:00 07/31/19 09:34 Topamax - PO 25 mg BID KM Administration Vital Signs (last) Temp Pulse Resp BP Pulse Ox 98.0 F 86 20 136/64 98 07/31/19 18:00 07/31/19 18:00 07/31/19 18:00 07/31/19 18:00 07/31/19 18:00 Intake and Output 07/29/19 07/30/19 07/31/19 23:59 23:59 23:59 Intake Total 4040 Balance 4040 Intake: Oral 4040 Other: Voiding Method Diaper Diaper # Unmeasured Voids Void 2 Bowel Movement No No Weight 128 lb 6 oz Height 5 ft Body Mass Index (BMI) 25.0 Weight Measurement Method Patient Lift Scale Laboratory 07/31/19 07:30 07/31/19 07:30 FAMILY HISTORY Reviewed and noncontributory REVIEW OF SYMPTOMS A twelve-point review of systems was performed and was negative except as noted in HPI. PHYSICAL EXAM Constitutional: Alert. Following commands. No acute distress, appropriate mood and affect. HEENT: Normocephalic, atraumatic Cardiovascular: Regular rate and rhythm, extremities warm, no cyanosis. Pulmonary: Breathing comfortably, normal air movement, no audible wheezing. Cervical Spine: No midline or paraspinal muscle tenderness. Thoracic/Lumbar Spine: No mildine or paraspinal muscle tenderness at the thoracic spine. Mild tenderness at the upper lumbar paraspinal muscles. Right Upper Extremity: No tenderness to palpation. Full passive and active ROM, free from pain. Left Upper Extremity: No tenderness to palpation. Full passive and active ROM, free from pain. Right Lower Extremity: Skin warm, dry, and intact; no lesions, rashes or ulcers noted. Muscle mass equal and symmetric to contralateral side. No atrophy noted. No masses or effusions noted. No tenderness to palpation. No cords or calf tenderness. No significant calf/ankle edema. Full passive and active ROM, free from pain. Joints stable with no pathologic laxity. EHL/TA/GS motor intact; SILT distally; 2+ DP pulses; Cap refill brisk. Tone and reflexes normal. Left Lower Extremity: Skin warm, dry, and intact; no lesions, rashes or ulcers noted. Muscle mass equal and symmetric to contralateral side. No atrophy noted. No masses or effusions noted. No tenderness to palpation. No cords or calf tenderness. No significant calf/ankle edema. Full passive and active ROM, free from pain. Joints stable with no pathologic laxity. EHL/TA/GS motor intact; SILT distally; 2+ DP pulses; Cap refill brisk. Tone and reflexes normal. IMAGING I personally reviewed CT images of the cervical, thoracic and lumbar spine. They show multilevel degenerative changes with an acute to subacute compression deformity of L1 with no significant retropulsion. There is a mild spondylolisthesis of L4-5 and chronic compression deformities of the T7 and T8. ASSESSMENT AND PLAN Genevieve Howell is an 89 year old female presenting status post mechanical fall with an acute/subacute L1 vertebral compression fracture. We have reviewed the imaging and clinical findings in detail, as well as their potential implications. - No surgical intervention at this time - PT/OT; WBAT - Pain control: Transition to oral pain medications, minimize narcotic use - DVT prophylaxis - Elevate HOB, encourage oral intake - Appreciate medical management (Nutrition optimization, decubitus precautions heel/sacrum) - Dispo planning All questions were answered. Thank you for involving our team in the care of this patient. Please have patient follow up in our office in 1-2 weeks .
[2019-07-31] MEDS: POTASSIUM CHLORIDE TABS 20 MEQ TABLET.ER (FP) PO SCH (21:08)
[2019-07-31] MEDS ORDERED: ATORVASTATIN CA 20 MG TABLET (FP) PO SCH (22:00)
[2019-08-01] MEDS: POTASSIUM CHLORIDE TABS 20 MEQ TABLET.ER (FP) PO SCH (05:14)
[2019-08-01] MEDS: HEPARIN NA (PORCINE) 5,000 UNITS/ML 1ML VIAL SQ SCH (06:13)
[2019-08-01 06:28] VITALS: BP 145/45; PULSE 72; TEMP 98.2
--- NOTE | 2019-08-01 08:19 | DS ---
Physical Exam: SUBJECTIVE: Patient seen and examined OBJECTIVE: Vital Signs Period Temp Pulse Resp BP Sys/Blevins Pulse Ox Last 24 Hr 97.9 F-98.3 F 72-87 16-21 115-145/45-88 94-98 PHYSICAL EXAM GENERAL: The patient is awake, alert, and fully oriented, in no acute distress. HEAD: Normal with no signs of trauma. EYES: PERRL, extraocular movements intact, sclera anicteric, conjunctiva clear. ENT: Ears normal, nares patent, oropharynx clear without exudates, moist mucous membranes. NECK: Trachea midline, full range of motion, supple. LUNGS: Breath sounds equal, clear to auscultation bilaterally, no wheezes, no crackles, no accessory muscle use. HEART: Regular rate and rhythm, S1, S2 without murmur, rub or gallop. ABDOMEN: Soft, nontender, nondistended, normoactive bowel sounds, no guarding, no rebound, no hepatosplenomegaly, no masses. EXTREMITIES: 2+ pulses, warm, well-perfused, no edema. NEUROLOGICAL: Cranial nerves II through XII grossly intact. Normal speech, gait not observed. PSYCH: Normal mood, normal affect. SKIN: Warm, dry, normal turgor, no rashes or lesions noted. LABS Laboratory Results - last 24 hr 07/31/19 07:30 Sodium 136 Potassium 3.0 L Chloride 107 Carbon Dioxide 24 Anion Gap 5 L BUN 11.0 Creatinine 0.6 Est GFR (CKD-EPI)AfAm 93.66 Est GFR (CKD-EPI)NonAf 80.81 Random Glucose 114 H Calcium 8.1 L Magnesium 2.1 Total Bilirubin 1.4 H AST 20 ALT 18 Alkaline Phosphatase 99 D Total Protein 5.9 L Albumin 2.6 L HOSPITAL COURSE: Date of Admission:07/30/19 Date of Discharge: 08/01/19 Pre hospital course 88 year-old female with a PMH significant for HTN, HLD, diastolic HF, GERD, constipation, urinary and fecal incontinence, collagenous colitis, iron- deficiency anemia, PUD and dementia. Recently hospitalized for UTI (06/28-07/02/19 ), discharged from [facility] last week. Brought to ED following a mechanical fall , observed patient walking without her walker, lose her balance and fall backward hitting her head and back. ER course (1) WBC 12.7k, afebrile (2) Pyuria: >100WBCs 88 year-old female with a PMH significant for HTN, HLD, diastolic HF, GERD, constipation, urinary and fecal incontinence, collagenous colitis, iron- deficiency anemia, PUD and dementia. Recently hospitalized for UTI (06/28-07/02/19 ), discharged from [facility] last week. Brought to ED following a mechanical fall. Mechanical fall --witnessed fall, no syncope, no LOC --CT head: no acute pathology Compression fracture --07/30 CT spine: acute v. subacute L1 vertebral compression fracture with mild bony retropulsion; chronic compression fractures T7,T8 --does not complain of pain, no exhibited signs of pain; seen walking with PT earlier today, waiting for PT assessment --ortho consult: no surgical intervention Pyuria --afebrile, WBC has normalized, and asymptomatic --recently completed 10-day course of meropenem --observed off antibiotics as pyuria is likely colonization of bladder epithelium --encourage PO intake Hypertension --BP stable --continue amlodipine Hyperlipidemia --continue atorvastatin Diastolic heart failure --euvolemic --not on diuretics GERD --continue Pepcid Dementia --continue topiramate Hypokalemia --replete FEN Fluids: PO intake adequate Electrolytes: replete as indicated Nutrition: low sodium Physical therapy DVT prophylaxis: subq heparin Dispo: continues to require inpatient care. Full code. Subsequent hospital course Minutes to complete discharge: 35 Discharge Summary Problems reviewed: Yes Reason For Visit: COMPRESSION FRACTURE OF LUMBAR VERTEBRA Current Active Problems Lumbar compression fracture (Acute) UTI (urinary tract infection) (Acute) Condition: Improved - Instructions Disposition: HOME - Home Medications Comprehensive Discharge Medication List: Ambulatory Orders Alendronate Sodium [Fosamax] 1 tab PO WEEKLY 06/28/19 Amlodipine Besylate 2.5 mg PO DAILY 06/28/19 Aspirin [Aspirin EC] 81 mg PO DAILY 06/28/19 Atorvastatin Ca [Lipitor] 20 mg PO DAILY 06/28/19 Cholecalciferol (Vitamin D3) [D3-2000] 2,000 unit PO DAILY 06/28/19 Cyanocobalamin (Vitamin B-12) [B-12] 2,500 mcg SL DAILY 06/28/19 Famotidine [Pepcid] 20 mg PO DAILY 11/01/19 Iron,Carbonyl [Carbonyl Iron] 65 mg PO Q48H 06/28/19 Topiramate [Topamax] 25 mg PO BID 06/28/19 This patient is new to me today: No Emergency Visit: Yes ED Registration Date: 07/30/19 Care time: The patient presented to the Emergency Department on the above date and was hospitalized for further evaluation of their emergent condition. Critical Care patient: No - Discharge Referral Referred to [facility] No
[2019-08-01] MEDS: FAMOTIDINE 20 MG TABLET PO SCH (10:03)
[2019-08-01] MEDS: TOPIRAMATE 25 MG TABLET (FP) PO SCH (10:03)
[2019-08-01] MEDS: ASPIRIN COATED 81 MG TABLET.EC PO SCH (10:03)
[2019-08-01] MEDS: amLODIPine BESYLATE 2.5 MG TABLET (FP) PO SCH (10:03)
[2019-08-01] MEDS: CYANOCOBALAMIN 1,000 MCG TABLET (FP) PO SCH (10:04)
[2019-08-01] MEDS: CHOLECALCIFEROL (VIT D3) 1,000 UNIT (25 MCG) TABLET PO SCH (10:04)
== END 2019-08-01 14:18 | disposition home or self-care (01) | DRG 552 ==
LOC: FER 16:47 → FM/S 21:23
PROVIDERS: ADMIT Internal Medicine; ATTEND Nurse Practitioner Acute Care
DX: S32.010A Wedge compression fracture of first lumbar vertebra, initial encounter for closed fracture (principal); N39.0 Urinary tract infection, site not specified; I50.30 Unspecified diastolic (congestive) heart failure; F03.90 Unspecified dementia, unspecified severity, without behavioral disturbance, psychotic disturbance, mood disturbance, and anxiety; E78.5 Hyperlipidemia, unspecified; K21.9 Gastro-esophageal reflux disease without esophagitis; I11.0 Hypertensive heart disease with heart failure; E87.6 Hypokalemia; W19.XXXA Unspecified fall, initial encounter; Y93.9 Activity, unspecified; Y92.89 Other specified places as the place of occurrence of the external cause
CPT/HCPCS: 36415; 70450-TC; 72125-TC; 72128-TC; 72131-TC; 80053; 81003; 81015; 83735; 84100; 85025; 87040; 87086; 87186; 97116-GP; 97162-GP; 99282-25; J1644